=== PATIENT | female | born 1935 | race Caucasian/White ===

== ENCOUNTER 2016-09-22 05:52 | Day surgery (SDC) | payer MEDICARE, OTHER ==
[2016-09-22] MEDS ORDERED: Lactated Ringers 1,000 ML IV SCH (06:30)
[2016-09-22] MEDS ORDERED: Ketamine HCl 50 MG/ML IJ ONE (08:00)
[2016-09-22] MEDS ORDERED: DIPRIVAN 200 MG/20 ML IV ONE (08:00)
[2016-09-22 08:03] VITALS: O2SAT 97
--- NOTE | 2016-09-22 08:41 | OP ---
SURGERY DATE/TIME: 09/22/2016 0657 PREOPERATIVE DIAGNOSIS: History of colon polyps. POSTOPERATIVE DIAGNOSIS: Diverticulosis throughout the colon otherwise normal colon. PROCEDURE: Colonoscopy. SURGEON: Dr. Recinos. ANESTHESIA: Medications given by anesthesia department. HISTORY: The patient is an 81 year-old white female presenting now for repeat colonoscopy. The patient reports it has been over five years since her previous examination at which time she had polyps removed. The patient was felt the need to have re-investigation. She was reappraised of the risks of the procedure including the risk of perforation, phlebitis, untoward reaction to medication, bleeding, and missed lesions. The patient verbalized her understanding and desired to have the procedure performed. DESCRIPTION OF PROCEDURE: The patient was given the medications by the anesthesia department. She had continuous pulse oximetry, ECG monitoring, intermittent blood pressure monitoring, and tidal CO2 monitoring during the examination. She was placed in the left lateral decubitus position. A digital rectal examination was performed and revealed normal anal sphincter tone and no masses. The flexible Olympus pediatric colonoscope was used to intubate the rectum. A view of the colon was developed sequentially to the cecum. Upon insertion and withdrawal, including a retroflex view in the rectum, no mucosal lesions were encountered other than diverticula. The scope was removed from the patient who tolerated the procedure well and was sent back to OP recovery in good condition. The prep was noted to be fair to good.
[2016-09-22 08:49] VITALS: BP 128/57; PULSE 61
== END 2016-09-22 08:54 | disposition home or self-care (01) ==
LOC: SDC 05:52
PROVIDERS: ATTEND Family Medicine
PROC: 0DJD8ZZ Inspection of Lower Intestinal Tract, Via Natural or Artificial Opening Endoscopic (ICD-10-PCS; principal; 2016-09-22)
DX: K57.90 Diverticulosis of intestine, part unspecified, without perforation or abscess without bleeding (principal); Z86.010 Personal history of colon polyps; I10 Essential (primary) hypertension
CPT/HCPCS: 00810; 99100; J2704

== ENCOUNTER 2017-08-08 16:20 | Emergency (ER) | payer MEDICARE, OTHER ==
[2017-08-08 17:45] LABS: BASOPHIL % 0.6 % (0.0-0.4); Basophil (Absolute #) 0.05 (0-0.4); Eosinophil % 1.3 % (0.00-5.0); Granulocyte Absolute (ANC) 5.12 (1.4-6.9); Granulocytes % 66.3 % (36.0-66.0); Hematocrit 40.9 % (35-47); Hemoglobin 13.9 gm/dl (12.0-16.0); Lymphocyte (Absolute #) 1.85 (1.0-4.6); Mean Cell Volume 96.5 fl (78-100); Mean Corpuscular Hemoglobin 32.8 pg (26-32); Mean Platelet Volume 9.5 fl (6-9.5); Monocytes % 7.8 % (0.0-12.0); Platelet Count 244 K/mm3 (150-450); Red Blood Count 4.24 M/mm3 (4.1-5.4); Red Cell Distribution Width 12.1 % (11.5-14.0); White Blood Count 7.7 K/mm3 (4.0-10.5)
--- NOTE | 2017-08-08 18:09 | ERPHSYRPT ---
- History of Present Illness Time Seen by Provider: 08/08/17 17:58 Source: patient Patient Subjective Stated Complaint: STARTED TAKING MAGNESIUM ON THURSDAY AND THEN STARTED HAVING SWELLING TO BOTH LOWER LEGS AND ANKLES. DENIES PAIN. STATES SWELLING GOES DOWN OVERNIGHT BUT RETURNS AFTER BEING ON FEET Triage Nursing Assessment: MODERATE SWELLING AND EDEMA NOTED TO BILATERAL FEET, LOWER LEGS AND ANKLES. MORE NOTED IN LEFT ANKLE. GOOD PEDAL PULSES AND CAP REFILL. Physician History: CC: swelling Hx: 82 y/o patient of Dr Dane Carrasquillo. She has lower extremity swelling in both legs. It is better in mornings. Worse in evenings. She has some pain associated with it. She has arthritis and has had coxcomb injections per Dr Valle. She uses ibuprofen and alleve fairly regularly. No hx of blood clots. No chest pain or dyspnea. No fever or chills. Severity: moderate Allergies/Adverse Reactions: Sulfa (Sulfonamide Antibiotics) [Sulfa(Sulfonamide Antibiotics)] Allergy ( Intermediate, Verified 08/08/17 16:59) Home Medications: Furosemide 20 mg [Lasix 20 mg] 20 mg PO DAILY 09/30/11 [History] Potassium Chloride [Klor-Con 10] 10 meq PO BID 09/30/11 [History] [place]-3 Fatty Acids [Fish Oil] 1,000 mg PO DAILY 05/29/16 [History] Alprazolam [Xanax 0.25 mg] 0.25 mg PO TID PRN 09/15/16 [History] Amlodipine Besylate/Benazepril [Lotrel 10-40 mg Capsule] 1 each PO DAILY [History] Chlorthalidone 25 mg PO DAILY 08/08/17 [History] Magnesium Oxide [Magnesium] 400 mg PO DAILY 08/08/17 [History] Nebivolol HCl [Bystolic] 20 mg PO DAILY 08/08/17 [History] Hx Tetanus, Diphtheria Vaccination/Date Given: Yes Hx Influenza Vaccination/Date Given: Yes Hx Pneumococcal Vaccination/Date Given: Yes - Review of Systems Constitutional: No Fever, No Chills Eyes: No Symptoms Ears, Nose, & Throat: No Symptoms Respiratory: No Cough, No Dyspnea Cardiac: Edema, No Chest Pain Abdominal/Gastrointestinal: No Abdominal Pain, No Nausea, No Vomiting Genitourinary Symptoms: No Dysuria Skin: No Rash Neurological: No Headache All Other Systems: Reviewed and Negative - Past Medical History Pertinent Past Medical History: Yes Neurological History: No Pertinent History ENT History: No Pertinent History Cardiac History: Hypertension Respiratory History: No Pertinent History Endocrine Medical History: No Pertinent History Musculoskeletal History: Arthritis GI Medical History: No Pertinent History History: Other Psycho-Social History: No Pertinent History Female Reproductive Disorders: No Pertinent History - Past Surgical History Past Surgical History: Yes Neuro Surgical History: No Pertinent History Cardiac: No Pertinent History Respiratory: No Pertinent History Gastrointestinal: No Pertinent History Genitourinary: No Pertinent History Musculoskeletal: No Pertinent History Female Surgical History: Tubal Ligation Other Surgical History: back surgery -L-5 herniat. disc - Social History Smoking Status: Never smoker Exposure to second hand smoke: No Alcohol Use: None Drug Use: none Patient Lives Alone: Yes Significant Family History: hypertension - Female History Hx Now: Yes - Nursing Vital Signs Nursing Vital Signs: Initial Vital Signs Temperature 97.4 F 08/08/17 16:47 Pulse Rate 71 08/08/17 16:47 Respiratory Rate 16 08/08/17 16:47 Blood Pressure 165/73 08/08/17 16:47 O2 Sat by Pulse Oximetry 94 L 08/08/17 16:47 Pain Scale Pain Intensity 0 - Physical Exam General Appearance: alert Eye Exam: PERRL/EOMI Ears, Nose, Throat Exam: normal ENT inspection, moist mucous membranes Neck Exam: normal inspection, non-tender, supple Respiratory Exam: normal breath sounds, No respiratory distress, No crackles/ rales Cardiovascular Exam: regular rate/rhythm Gastrointestinal/Abdomen Exam: soft, No tenderness, No distention Back Exam: normal inspection Extremity Exam: other (both legs have moderate pitting edema, no calf tenderness , mild vasculitis venous stasis dermatitis. Good pedal pulses.) Skin Exam: warm, dry SpO2 Interpretation: normal SpO2: 94 Oxygen Delivery: Room Air - Course Nursing assessment & vital signs reviewed: Yes Ordered Tests: Active Orders 24 hr Category Date Time Status IV Insertion STAT Care 08/08/17 17:24 Active CBC W DIFF Stat Lab 08/08/17 17:41 Completed CMP Stat Lab 08/08/17 17:41 Completed NT PRO BNP Stat Lab 08/08/17 17:41 Completed UA W/ MICROSCOPIC Stat Lab 08/08/17 18:18 Completed Lab/Rad Data: Laboratory Result Diagrams 08/08/17 17:41 08/08/17 17:41 Laboratory Results 08/08/17 08/08/17 08/08/17 Range/Units 18:18 17:41 17:41 WBC (4.0-10.5) K/mm3 RBC (4.1-5.4) M/mm3 Hgb (12.0-16.0) gm/dl Hct (35-47) % MCV (78-100) fl MCH (26-32) pg MCHC (32-36) g/dl RDW (11.5-14.0) % Plt Count (150-450) K/mm3 MPV (6-9.5) fl Gran % (36.0-66.0) % Lymphocytes % (24.0-44.0) % Monocytes % (0.0-12.0) % Eosinophils % (0.00-5.0) % Basophils % (0.0-0.4) % Basophils # (0-0.4) Sodium 138 (137-145) mmol/L Potassium 3.9 (3.5-5.1) mmol/L Chloride 97 L (98-107) mEq/L Carbon Dioxide 29 (22-30) mmol/L Anion Gap 15.6 H (5-15) MEQ/L BUN 20 H (7-17) mg/dl Creatinine 0.86 (0.52-1.04) mg/dl Estimated GFR > 60 ML/MIN Glucose 127 H (74-106) mg/dL Calcium 10.3 H (8.4-10.2) mg/dL Total Bilirubin 0.50 (0.2-1.3) mg/d? AST 27 (14-36) U/L ALT 23 (0-35) U/L Alkaline Phosphatase 89 (38-126) U/L NT-Pro-B Natriuret Pep 182 (0-1800) pg/ml Serum Total Protein 7.6 (6.3-8.2) mg/dl Albumin 4.4 (3.5-5.0) g/dl Ur Collection Type CATH Urine Color YELLOW (YELLOW) Urine Appearance CLEAR (CLEAR) Urine pH 6.0 (5-6) Ur Specific [place] 1.020 (1.005-1.025) Urine Protein NEGATIVE (Negative) Urine Ketones NEGATIVE (NEGATIVE) Urine Blood NEGATIVE (0-5) Portillo/ul Urine Nitrite NEGATIVE (NEGATIVE) Urine Bilirubin NEGATIVE (NEGATIVE) Urine Urobilinogen NORMAL (0-1) mg/dL Ur Leukocyte Esterase TRACE (NEGATIVE) Urine Microscopic RBC 0-2 (0-2) /HPF Urine Microscopic WBC 0-2 (0-5) /HPF Ur Epithelial Cells FEW (FEW) /HPF Urine Bacteria FEW (NEGATIVE) /HPF Urine Culture Reflexed NO (NO) Urine Glucose NEGATIVE (NEGATIVE) mg/dL Specimen Received 08/08/17 1820 08/08/17 Range/Units 17:41 WBC 7.7 (4.0-10.5) K/mm3 RBC 4.24 (4.1-5.4) M/mm3 Hgb 13.9 (12.0-16.0) gm/dl Hct 40.9 (35-47) % MCV 96.5 (78-100) fl MCH 32.8 H (26-32) pg MCHC 34.0 (32-36) g/dl RDW 12.1 (11.5-14.0) % Plt Count 244 (150-450) K/mm3 MPV 9.5 (6-9.5) fl Gran % 66.3 H (36.0-66.0) % Lymphocytes % 24.0 (24.0-44.0) % Monocytes % 7.8 (0.0-12.0) % Eosinophils % 1.3 (0.00-5.0) % Basophils % 0.6 (0.0-0.4) % Basophils # 0.05 (0-0.4) Sodium (137-145) mmol/L Potassium (3.5-5.1) mmol/L Chloride (98-107) mEq/L Carbon Dioxide (22-30) mmol/L Anion Gap (5-15) MEQ/L BUN (7-17) mg/dl Creatinine (0.52-1.04) mg/dl Estimated GFR ML/MIN Glucose (74-106) mg/dL Calcium (8.4-10.2) mg/dL Total Bilirubin (0.2-1.3) mg/d? AST (14-36) U/L ALT (0-35) U/L Alkaline Phosphatase (38-126) U/L NT-Pro-B Natriuret Pep (0-1800) pg/ml Serum Total Protein (6.3-8.2) mg/dl Albumin (3.5-5.0) g/dl Ur Collection Type Urine Color (YELLOW) Urine Appearance (CLEAR) Urine pH (5-6) Ur Specific [place] (1.005-1.025) Urine Protein (Negative) Urine Ketones (NEGATIVE) Urine Blood (0-5) Portillo/ul Urine Nitrite (NEGATIVE) Urine Bilirubin (NEGATIVE) Urine Urobilinogen (0-1) mg/dL Ur Leukocyte Esterase (NEGATIVE) Urine Microscopic RBC (0-2) /HPF Urine Microscopic WBC (0-5) /HPF Ur Epithelial Cells (FEW) /HPF Urine Bacteria (NEGATIVE) /HPF Urine Culture Reflexed (NO) Urine Glucose (NEGATIVE) mg/dL Specimen Received - Progress Progress Note: 08/08/17 18:10 This appears to be venous stasis. Discussed limiting NSAIDS, watch salt intake, try support stockings, prop legs in afternoons. 08/08/17 18:41 Labs reassuring. Instr given. Counseled pt/family regarding: lab results, diagnosis, need for follow-up - Departure Time of Disposition: 18:41 Departure Disposition: Home Clinical Impression: Venous stasis of both lower extremities Condition: Stable Critical Care Time: No Referrals: WILBERTO CARRASQUILLO [Primary Care Provider] - Instructions: Dependent Edema (DC), How to Put On and Take Off Compression Stockings Additional Instructions: Support stockings during the day. Elevate legs. Watch your salt intake. Avoid aleve and ibuprofen. May use acetaminophen or tylenol. Follow up with Dr Carrasquillo.
[2017-08-08 18:22] LABS: ALBUMIN 4.4 g/dl (3.5-5.0); ALKALINE PHOSPHATASE 89 U/L (38-126); ANION GAP 15.6 MEQ/L (5-15); BLOOD UREA NITROGEN 20 mg/dl (7-17); CHLORIDE 97 mEq/L (98-107); Calcium 10.3 mg/dL (8.4-10.2); Carbon Dioxide 29 mmol/L (22-30); Creatinine 1 0.86 mg/dl (0.52-1.04); Glucose 127 mg/dL (74-106); Potassium 3.9 mmol/L (3.5-5.1); SGOT/AST 27 U/L (14-36); SGPT/ALT 23 U/L (0-35); SODIUM 138 mmol/L (137-145); Total Protein 7.6 mg/dl (6.3-8.2)
[2017-08-08 18:38] LABS: Appearance CLEAR (CLEAR); Bacteria FEW /HPF (NEGATIVE); Bilirubin NEGATIVE (NEGATIVE); Blood NEGATIVE Ery/ul (0-5); Epithelial Cells FEW /HPF (FEW); Glucose NEGATIVE (NEGATIVE); Ketones NEGATIVE (NEGATIVE); Leukocyte Esterase TRACE (NEGATIVE); Nitrite NEGATIVE (NEGATIVE); Protein,Urine Dip NEGATIVE (Negative); Urobilinogen NORMAL mg/dL (0-1); WBC 0-2 /HPF (0-5)
[2017-08-08 18:40] VITALS: PULSE 61
[2017-08-08 18:43] VITALS: O2SAT 94
[2017-08-08 19:24] VITALS: BP 153/74
== END 2017-08-08 19:24 | disposition home or self-care (01) ==
LOC: ED 16:20
DX: I87.8 Other specified disorders of veins (principal); Z79.899 Other long term (current) drug therapy
CPT/HCPCS: 36000; 36415; 80053; 81000; 83880; 85025; 99283

== ENCOUNTER 2017-11-29 11:30 | Inpatient (IN) | payer MEDICARE, OTHER ==
[2017-11-29] MEDS ORDERED: NORVASC 5 MG ONE (21:33)
[2017-11-29] MEDS ORDERED: Lotensin 10 MG ONE (21:33)
[2017-11-29] MEDS: xanAX 0.5 MG PO PRN (21:36)
[2017-11-29] MEDS: Klor Con 10 MEQ PO SCH (21:36)
[2017-11-29] MEDS: MAG-OX 400 PO SCH (21:36)
[2017-11-30] MEDS: Norco 10/325 MG Tablet PO PRN ×3 (01:18→21:32)
--- NOTE | 2017-11-30 08:10 | PCM.HP ---
History of Present Illness - Chief Complaint Chief Complaint: Deconditioning related to Right total knee Date: 11/30/17 History of Present Illness: is a 82 year old female. s/p right total knee with Dr. Walls at [facility]. Now undergoing rehab. she is doing well with no complaints. - Review of Systems Constitutional: No Fever, No Chills Eyes: No Symptoms Ears, Nose, & Throat: No Symptoms Respiratory: No Cough, No Short Of Breath Cardiac: No Chest Pain, No Edema, No Syncope Abdominal/Gastrointestinal: No Abdominal Pain, No Nausea, No Vomiting, No Diarrhea Genitourinary Symptoms: No Dysuria Musculoskeletal: No Back Pain, No Neck Pain Skin: No Rash Neurological: No Dizziness, No Focal Weakness, No Sensory Changes Psychological: No Symptoms Endocrine: No Symptoms Hematologic/Lymphatic: No Symptoms Immunological/Allergic: No Symptoms Medications & Allergies Home Medications: Home Medication List Furosemide 20 mg [Lasix 20 mg] 20 mg PO DAILY 09/30/11 [History Confirmed 06/18] Potassium Chloride [Klor-Con 10] 10 meq PO BID 09/30/11 [History Confirmed 11/29] Amlodipine Besylate/Benazepril [Lotrel 10-40 mg Capsule] 1 each PO DAILY [History Confirmed 11/29/17] Chlorthalidone 25 mg PO DAILY 08/08/17 [History Confirmed 11/29/17] Magnesium Oxide [Magnesium] 400 mg PO BID 08/08/17 [History Confirmed 11/29/17] Nebivolol HCl [Bystolic] 20 mg PO DAILY 08/08/17 [History Confirmed 11/29/17] Alprazolam [Xanax] 0.5 mg PO TIDPRN 11/29/17 [History Confirmed 11/29/17] Aspirin [Aspirin EC] 325 mg PO DAILY 11/29/17 [History Confirmed 11/29/17] Hydrocodone Bit/Acetaminophen [Hydrocodon-Acetaminophn 10-325] 1 tab PO Q4HPRN PRN 11/29/17 [History Confirmed 11/29/17] Allergies/Adverse Reactions: Allergies Allergy/AdvReac Type Severity Reaction Status Date / Time Sulfa (Sulfonamide Allergy Intermediate Verified 11/29/17 16:10 Antibiotics) [Sulfa(Sulfonamide Antibiotics)] - Past Medical History Past Medical History: Yes Neurological History: No Pertinent History ENT History: No Pertinent History Cardiac History: Hypertension Respiratory History: No Pertinent History Endocrine Medical History: No Pertinent History Musculoskelatal History: Arthritis GI Medical History: No Pertinent History History: Other Pyscho-Social History: No Pertinent History Reproductive Disorders: No Pertinent History Comment: colonoscopy, UTI's - Female History Are you now?: No - Past Surgical History Past Surgical History: Yes Neuro Surgical History: No Pertinent History Cardiac History: No Pertinent History Respiratory Surgery: No Pertinent History GI Surgical History: No Pertinent History Genitourinary Surgical Hx: No Pertinent History Musculskeletal Surgical Hx: No Pertinent History Female Surgical History: Tubal Ligation Other Surgical History: back surgery -L-5 herniat. disc. Arthroscopy of the R knee, Right total knee done 11/26/17 - Social History Smoking Status: Never smoker Exposure to second hand smoke: No Alcohol: None Drug Use: none Significant Family History: hypertension - Physical Exam Vital Signs: Vital Signs - 24 hr Temp Pulse Resp BP Pulse Ox 11/30/17 06:53 98.6 F 64 16 112/52 96 11/29/17 20:00 98.4 F 65 16 142/63 95 11/29/17 16:31 99.4 F 68 16 136/63 96 11/29/17 16:29 99.4 F 68 16 136/63 96 11/29/17 16:15 99.4 F 68 16 136/63 96 General Appearance: no apparent distress, alert, obese Neurologic Exam: alert, oriented x 3, cooperative, normal mood/affect, sensation nml Eye Exam: PERRL/EOMI, eyes nml inspection Ears, Nose, Throat Exam: normal ENT inspection, TMs normal, pharynx normal, moist mucous membranes Neck Exam: normal inspection, non-tender, supple, full range of motion Respiratory Exam: normal breath sounds, lungs clear, No respiratory distress Cardiovascular Exam: regular rate/rhythm, normal heart sounds, normal peripheral pulses Gastrointestinal/Abdomen Exam: soft, normal bowel sounds, No tenderness, No mass Back Exam: normal inspection, No CVA tenderness, No vertebral tenderness Extremity Exam: normal inspection, other (right knee antimicrobial dressing in place minimal swelling no bruising or redness no calf tenderness) Skin Exam: normal color, warm, dry, ecchymosis, other (diffuse bilateral arms), No rash Lymphatic Exam: No adenopathy Assessment/Plan (1) Osteoarthritis Current Visit: Yes Status: Acute Assessment & Plan: continue follow post op orders from ortho Dr. Walls start PT has f/u with Dr. Walls as well for staple removal Code(s): M19.90 - UNSPECIFIED OSTEOARTHRITIS, UNSPECIFIED SITE (2) Total knee replacement status Current Visit: Yes Status: Acute Qualifiers: Laterality: right Qualified Code(s): Z96.651 - Presence of right artificial knee joint Code(s): Z96.659 - PRESENCE OF UNSPECIFIED ARTIFICIAL KNEE JOINT (3) Essential hypertension Current Visit: Yes Status: Chronic Code(s): I10 - ESSENTIAL (PRIMARY) HYPERTENSION (4) Obesity Current Visit: Yes Status: Chronic Qualifiers: Body mass index: BMI 32.0-32.9 Code(s): E66.9 - OBESITY, UNSPECIFIED
[2017-11-30] MEDS: Bystolic 5 MG PO SCH (09:48)
[2017-11-30] MEDS: Ecotrin 325 MG PO SCH (09:48)
[2017-11-30] MEDS: Klor Con 10 MEQ PO SCH ×2 (09:49→21:22)
[2017-11-30] MEDS: hydroDIURIL 25 MG PO SCH (09:49)
[2017-11-30] MEDS: MAG-OX 400 PO SCH ×2 (09:49→21:22)
[2017-11-30] MEDS: LASIX 20 MG PO SCH (09:49)
[2017-11-30] MEDS ORDERED: NON-FORMULARY ITEM (Nebivolol Hcl [Bystolic] 20 MG) PO SCH (10:00)
[2017-11-30] MEDS ORDERED: BENAZEPRIL PO SCH (10:00)
[2017-11-30] MEDS ORDERED: Lotensin 10 MG PO SCH (10:00)
[2017-11-30] MEDS ORDERED: AMLODIPINE BESYLATE PO SCH (10:00)
[2017-11-30] MEDS ORDERED: NORVASC 5 MG PO SCH (10:00)
[2017-11-30] MEDS ORDERED: Aplisol ID SCH (10:00)
[2017-11-30] MEDS ORDERED: NON-FORMULARY ITEM (Chlorthalidone [Chlorthalidone] 25 MG) PO SCH (10:00)
[2017-11-30] MEDS: Lotensin 10 MG PO SCH (21:22)
[2017-11-30] MEDS: NORVASC 5 MG PO SCH (21:23)
[2017-11-30] MEDS: xanAX 0.5 MG PO PRN (21:32)
[2017-12-01] MEDS: Norco 10/325 MG Tablet PO PRN ×2 (08:36→21:41)
[2017-12-01] MEDS: Ecotrin 325 MG PO SCH (10:10)
[2017-12-01] MEDS: Klor Con 10 MEQ PO SCH ×2 (10:10→21:39)
[2017-12-01] MEDS: LASIX 20 MG PO SCH (10:10)
[2017-12-01] MEDS: Bystolic 5 MG PO SCH (10:10)
[2017-12-01] MEDS: hydroDIURIL 25 MG PO SCH (10:10)
[2017-12-01] MEDS: MAG-OX 400 PO SCH ×2 (10:10→21:40)
[2017-12-01] MEDS: Lotensin 10 MG PO SCH (21:39)
[2017-12-01] MEDS: NORVASC 5 MG PO SCH (21:40)
[2017-12-01] MEDS: xanAX 0.5 MG PO PRN (21:41)
[2017-12-02] MEDS: Bystolic 5 MG PO SCH (09:55)
[2017-12-02] MEDS: Norco 10/325 MG Tablet PO PRN ×2 (09:56→17:03)
[2017-12-02] MEDS: Ecotrin 325 MG PO SCH (09:56)
[2017-12-02] MEDS: LASIX 20 MG PO SCH (09:56)
[2017-12-02] MEDS: Klor Con 10 MEQ PO SCH ×2 (09:56→22:11)
[2017-12-02] MEDS: hydroDIURIL 25 MG PO SCH (09:57)
[2017-12-02] MEDS: MAG-OX 400 PO SCH ×2 (09:57→22:11)
[2017-12-02] MEDS: Lotensin 10 MG PO SCH (22:11)
[2017-12-02] MEDS: NORVASC 5 MG PO SCH (22:11)
[2017-12-02] MEDS: xanAX 0.5 MG PO PRN (22:16)
[2017-12-03] MEDS: Bystolic 5 MG PO SCH (08:50)
[2017-12-03] MEDS: Ecotrin 325 MG PO SCH (08:51)
[2017-12-03] MEDS: Klor Con 10 MEQ PO SCH ×2 (08:51→21:28)
[2017-12-03] MEDS: hydroDIURIL 25 MG PO SCH (08:51)
[2017-12-03] MEDS: MAG-OX 400 PO SCH ×2 (08:51→21:28)
[2017-12-03] MEDS: LASIX 20 MG PO SCH (08:51)
[2017-12-03] MEDS: TYLENOL 325 MG PO PRN (10:27)
[2017-12-03] MEDS: Colace 100 MG PO SCH (10:27)
[2017-12-03] MEDS: MOTRIN 400 MG PO PRN ×3 (12:05→21:33)
[2017-12-03] MEDS: Lotensin 10 MG PO SCH (21:28)
[2017-12-03] MEDS: NORVASC 5 MG PO SCH (21:29)
[2017-12-03] MEDS: xanAX 0.5 MG PO PRN (21:33)
[2017-12-04] MEDS: TYLENOL 325 MG PO PRN (00:12)
[2017-12-04] MEDS: Norco 10/325 MG Tablet PO PRN ×2 (01:13→08:44)
[2017-12-04] MEDS: hydroDIURIL 25 MG PO SCH (08:48)
[2017-12-04] MEDS: Colace 100 MG PO SCH (08:48)
[2017-12-04] MEDS: Ecotrin 325 MG PO SCH (08:48)
[2017-12-04] MEDS: Bystolic 5 MG PO SCH (08:50)
[2017-12-04] MEDS: LASIX 20 MG PO SCH (08:51)
[2017-12-04] MEDS: MAG-OX 400 PO SCH ×2 (08:51→21:24)
[2017-12-04] MEDS: Klor Con 10 MEQ PO SCH ×2 (08:52→21:23)
[2017-12-04] MEDS: ULTRAM 50 MG PO PRN ×2 (15:08→21:25)
[2017-12-04] MEDS: Lotensin 10 MG PO SCH (21:24)
[2017-12-04] MEDS: NORVASC 5 MG PO SCH (21:24)
[2017-12-04] MEDS: xanAX 0.5 MG PO PRN (21:25)
[2017-12-05] MEDS: ULTRAM 50 MG PO PRN ×2 (08:34→22:43)
[2017-12-05] MEDS: Colace 100 MG PO SCH (08:35)
[2017-12-05] MEDS: MAG-OX 400 PO SCH ×2 (08:35→22:43)
[2017-12-05] MEDS: Ecotrin 325 MG PO SCH (08:35)
[2017-12-05] MEDS: Bystolic 5 MG PO SCH (08:36)
[2017-12-05] MEDS: LASIX 20 MG PO SCH (08:37)
[2017-12-05] MEDS: hydroDIURIL 25 MG PO SCH (08:38)
[2017-12-05] MEDS: Klor Con 10 MEQ PO SCH ×2 (08:39→22:43)
[2017-12-05] MEDS: Lotensin 10 MG PO SCH (22:43)
[2017-12-05] MEDS: NORVASC 5 MG PO SCH (22:43)
[2017-12-05] MEDS: xanAX 0.5 MG PO PRN (22:43)
[2017-12-06] MEDS: Colace 100 MG PO SCH (09:44)
[2017-12-06] MEDS: LASIX 20 MG PO SCH (09:44)
[2017-12-06] MEDS: Bystolic 5 MG PO SCH (09:45)
[2017-12-06] MEDS: Ecotrin 325 MG PO SCH (09:45)
[2017-12-06] MEDS: hydroDIURIL 25 MG PO SCH (09:45)
[2017-12-06] MEDS: Klor Con 10 MEQ PO SCH ×2 (09:45→22:58)
[2017-12-06] MEDS: MAG-OX 400 PO SCH ×2 (09:45→22:59)
[2017-12-06] MEDS: Lotensin 10 MG PO SCH (22:58)
[2017-12-06] MEDS: NORVASC 5 MG PO SCH (23:00)
[2017-12-06] MEDS: xanAX 0.5 MG PO PRN (23:00)
[2017-12-06] MEDS: ULTRAM 50 MG PO PRN (23:00)
[2017-12-07] MEDS: Colace 100 MG PO SCH (09:16)
[2017-12-07] MEDS: Bystolic 5 MG PO SCH (09:16)
[2017-12-07] MEDS: LASIX 20 MG PO SCH (09:17)
[2017-12-07] MEDS: MAG-OX 400 PO SCH ×2 (09:17→21:39)
[2017-12-07] MEDS: Klor Con 10 MEQ PO SCH ×2 (09:17→21:37)
[2017-12-07] MEDS: hydroDIURIL 25 MG PO SCH (09:17)
[2017-12-07] MEDS: Ecotrin 325 MG PO SCH (09:17)
[2017-12-07] MEDS: ULTRAM 50 MG PO PRN ×2 (09:58→21:40)
[2017-12-07] MEDS: MOTRIN 400 MG PO PRN (13:07)
[2017-12-07] MEDS: Lotensin 10 MG PO SCH (21:39)
[2017-12-07] MEDS: NORVASC 5 MG PO SCH (21:39)
[2017-12-07] MEDS: xanAX 0.5 MG PO PRN (21:40)
[2017-12-08] MEDS: MOTRIN 400 MG PO PRN (01:02)
[2017-12-08] MEDS: Klor Con 10 MEQ PO SCH ×2 (09:22→22:14)
[2017-12-08] MEDS: Colace 100 MG PO SCH ×2 (09:22→09:23)
[2017-12-08] MEDS: Bystolic 5 MG PO SCH (09:22)
[2017-12-08] MEDS: Ecotrin 325 MG PO SCH (09:22)
[2017-12-08] MEDS: MAG-OX 400 PO SCH ×2 (09:22→22:15)
[2017-12-08] MEDS: ULTRAM 50 MG PO PRN ×2 (09:22→22:19)
[2017-12-08] MEDS: LASIX 20 MG PO SCH (09:22)
[2017-12-08] MEDS: hydroDIURIL 25 MG PO SCH (09:22)
[2017-12-08] MEDS: TYLENOL 325 MG PO PRN (11:50)
[2017-12-08] MEDS: Lotensin 10 MG PO SCH (22:14)
[2017-12-08] MEDS: NORVASC 5 MG PO SCH (22:15)
[2017-12-08] MEDS: xanAX 0.5 MG PO PRN (22:19)
[2017-12-09] MEDS: MOTRIN 400 MG PO PRN ×2 (06:13→21:20)
[2017-12-09] MEDS: Klor Con 10 MEQ PO SCH ×2 (07:35→21:20)
[2017-12-09] MEDS: Ecotrin 325 MG PO SCH (07:35)
[2017-12-09] MEDS: MAG-OX 400 PO SCH ×2 (07:35→21:20)
[2017-12-09] MEDS: Bystolic 5 MG PO SCH (07:36)
[2017-12-09] MEDS: hydroDIURIL 25 MG PO SCH (11:24)
[2017-12-09] MEDS: LASIX 20 MG PO SCH (11:24)
[2017-12-09] MEDS: TYLENOL 325 MG PO PRN (20:18)
[2017-12-09] MEDS: Lotensin 10 MG PO SCH (21:19)
[2017-12-09] MEDS: NORVASC 5 MG PO SCH (21:20)
[2017-12-09] MEDS: xanAX 0.5 MG PO PRN (21:31)
[2017-12-10] MEDS: MOTRIN 400 MG PO PRN ×3 (01:21→22:17)
[2017-12-10] MEDS: LASIX 20 MG PO SCH (09:32)
[2017-12-10] MEDS: Bystolic 5 MG PO SCH (09:32)
[2017-12-10] MEDS: Ecotrin 325 MG PO SCH (09:32)
[2017-12-10] MEDS: hydroDIURIL 25 MG PO SCH (09:32)
[2017-12-10] MEDS: MAG-OX 400 PO SCH ×2 (09:33→22:17)
[2017-12-10] MEDS: Klor Con 10 MEQ PO SCH ×2 (09:33→22:17)
[2017-12-10] MEDS: Colace 100 MG PO SCH (09:33)
[2017-12-10] MEDS: NORVASC 5 MG PO SCH (22:17)
[2017-12-10] MEDS: Lotensin 10 MG PO SCH (22:17)
[2017-12-10] MEDS: xanAX 0.5 MG PO PRN (22:18)
[2017-12-11] MEDS: Ecotrin 325 MG PO SCH (09:48)
[2017-12-11] MEDS: hydroDIURIL 25 MG PO SCH (09:48)
[2017-12-11] MEDS: Klor Con 10 MEQ PO SCH ×2 (09:48→21:56)
[2017-12-11] MEDS: LASIX 20 MG PO SCH (09:48)
[2017-12-11] MEDS: MAG-OX 400 PO SCH ×2 (09:49→21:52)
[2017-12-11] MEDS: Colace 100 MG PO SCH (09:49)
[2017-12-11] MEDS: Bystolic 5 MG PO SCH (09:51)
[2017-12-11] MEDS ORDERED: Aplisol ID SCH (10:00)
[2017-12-11] MEDS: Protonix 40MG Tablet PO SCH (14:44)
[2017-12-11] MEDS: Tums EX 750 MG PO PRN (14:44)
[2017-12-11] MEDS: Lotensin 10 MG PO SCH (21:52)
[2017-12-11] MEDS: NORVASC 5 MG PO SCH (21:52)
[2017-12-11] MEDS: MOTRIN 400 MG PO PRN (21:53)
[2017-12-11] MEDS: xanAX 0.5 MG PO PRN (21:53)
[2017-12-12] MEDS: Protonix 40MG Tablet PO SCH (10:16)
[2017-12-12] MEDS: Ecotrin 325 MG PO SCH (10:16)
[2017-12-12] MEDS: MOTRIN 400 MG PO PRN ×2 (10:16→21:52)
[2017-12-12] MEDS: Colace 100 MG PO SCH (10:17)
[2017-12-12] MEDS: Bystolic 5 MG PO SCH (10:17)
[2017-12-12] MEDS: LASIX 20 MG PO SCH (10:17)
[2017-12-12] MEDS: MAG-OX 400 PO SCH ×2 (10:17→21:54)
[2017-12-12] MEDS: hydroDIURIL 25 MG PO SCH (10:17)
[2017-12-12] MEDS: Klor Con 10 MEQ PO SCH ×2 (10:17→21:54)
[2017-12-12] MEDS: NORVASC 5 MG PO SCH (21:53)
[2017-12-12] MEDS: Lotensin 10 MG PO SCH (21:53)
[2017-12-12] MEDS: xanAX 0.5 MG PO PRN (21:53)
[2017-12-12] MEDS: Tums EX 750 MG PO PRN (21:54)
[2017-12-13] MEDS: MOTRIN 400 MG PO PRN ×2 (03:40→22:21)
[2017-12-13 06:10] LABS: ANION GAP 11.3 MEQ/L (5-15); BLOOD UREA NITROGEN 15 mg/dL (7-17); CHLORIDE 94 mmol/L (98-107); Calcium 9.4 mg/dL (8.4-10.2); Carbon Dioxide 28 mmol/L (22-30); Creatinine 1 0.75 mg/dL (0.52-1.04); Glucose 118 mg/dL (74-106); Potassium 3.2 mmol/L (3.5-5.1); SODIUM 129 mmol/L (137-145)
[2017-12-13] MEDS: Ecotrin 325 MG PO SCH (09:19)
[2017-12-13] MEDS: Bystolic 5 MG PO SCH (09:19)
[2017-12-13] MEDS: Protonix 40MG Tablet PO SCH (09:19)
[2017-12-13] MEDS: MAG-OX 400 PO SCH ×2 (09:20→22:13)
[2017-12-13] MEDS: LASIX 20 MG PO SCH (09:20)
[2017-12-13] MEDS: Klor Con 10 MEQ PO SCH ×3 (09:20→22:13)
[2017-12-13] MEDS: hydroDIURIL 25 MG PO SCH (09:20)
[2017-12-13] MEDS: Colace 100 MG PO SCH (09:20)
[2017-12-13] MEDS ORDERED: Colace 100 MG PO PRN (11:20)
[2017-12-13] MEDS: TYLENOL 325 MG PO PRN (19:49)
[2017-12-13] MEDS: Lotensin 10 MG PO SCH (22:12)
[2017-12-13] MEDS: NORVASC 5 MG PO SCH (22:13)
[2017-12-13] MEDS: xanAX 0.5 MG PO PRN (22:13)
[2017-12-14] MEDS: Bystolic 5 MG PO SCH (10:07)
[2017-12-14] MEDS: Klor Con 10 MEQ PO SCH ×3 (10:07→21:29)
[2017-12-14] MEDS: LASIX 20 MG PO SCH (10:07)
[2017-12-14] MEDS: Ecotrin 325 MG PO SCH (10:07)
[2017-12-14] MEDS: Protonix 40MG Tablet PO SCH (10:07)
[2017-12-14] MEDS: hydroDIURIL 25 MG PO SCH (10:07)
[2017-12-14] MEDS: MAG-OX 400 PO SCH ×2 (10:07→21:35)
[2017-12-14] MEDS: Lotensin 10 MG PO SCH (21:29)
[2017-12-14] MEDS: MOTRIN 400 MG PO PRN (21:35)
[2017-12-14] MEDS: xanAX 0.5 MG PO PRN (21:35)
[2017-12-14] MEDS: NORVASC 5 MG PO SCH (21:35)
[2017-12-15] MEDS: Bystolic 5 MG PO SCH (10:12)
[2017-12-15] MEDS: hydroDIURIL 25 MG PO SCH (10:13)
[2017-12-15] MEDS: Protonix 40MG Tablet PO SCH (10:13)
[2017-12-15] MEDS: LASIX 20 MG PO SCH (10:13)
[2017-12-15] MEDS: Klor Con 10 MEQ PO SCH ×3 (10:13→21:24)
[2017-12-15] MEDS: MAG-OX 400 PO SCH ×2 (10:13→21:25)
[2017-12-15] MEDS: Ecotrin 325 MG PO SCH (10:13)
[2017-12-15] MEDS: MOTRIN 400 MG PO PRN ×2 (14:57→21:26)
[2017-12-15] MEDS: Lotensin 10 MG PO SCH (21:24)
[2017-12-15] MEDS: NORVASC 5 MG PO SCH (21:25)
[2017-12-15] MEDS: xanAX 0.5 MG PO PRN (21:26)
--- NOTE | 2017-12-16 08:16 | PCM.DCORD ---
- Discharge Discharge Date: 12/16/17 Disposition: Home, Self-Care Condition: Stable Prescriptions: Continue Furosemide 20 mg [Lasix 20 mg] 20 mg PO DAILY Potassium Chloride [Klor-Con 10] 10 meq PO BID Amlodipine Besylate/Benazepril [Lotrel 10-40 mg Capsule] 1 each PO DAILY Nebivolol HCl [Bystolic] 20 mg PO DAILY Magnesium Oxide [Magnesium] 400 mg PO BID Chlorthalidone 25 mg PO DAILY Hydrocodone Bit/Acetaminophen [Hydrocodon-Acetaminophn 10-325] 1 tab PO Q4HPRN PRN PRN Reason: Moderate Pain Aspirin [Aspirin EC] 325 mg PO DAILY Alprazolam [Xanax] 0.5 mg PO TIDPRN Follow up with: KRISSY KEMP MD [COURTESY STAFF] - 01/07/18 1:00 pm Forms: Patient Portal Information
[2017-12-16] MEDS: hydroDIURIL 25 MG PO SCH (09:16)
[2017-12-16] MEDS: LASIX 20 MG PO SCH (09:16)
[2017-12-16] MEDS: Protonix 40MG Tablet PO SCH (09:16)
[2017-12-16] MEDS: MAG-OX 400 PO SCH (09:16)
[2017-12-16] MEDS: Ecotrin 325 MG PO SCH (09:16)
[2017-12-16] MEDS: Bystolic 5 MG PO SCH (09:16)
[2017-12-16] MEDS: Klor Con 10 MEQ PO SCH (09:16)
[2017-12-16 13:11] VITALS: BP 108/56; PULSE 67; O2SAT 98
--- NOTE | 2017-12-17 12:20 | PCM.DS ---
Discharge Summary Date of Admission: 11/29/17 15:36 Date of Discharge: 12/16/17 Admitting Physician: WILBERTO CARRASQUILLO Primary Care Provider: WILBERTO CARRASQUILLO Allergies Allergies Sulfa (Sulfonamide Antibiotics) [Sulfa(Sulfonamide Antibiotics)] Allergy ( Intermediate, Verified 11/29/17 16:10) pt thinks she has had sulfa since her a reaction (unsure of what kind of reaction) years ago and did fine. Hospital Summary - Hospital Course Hospital Course: she presented after total knee replacement for therapy. She has done very well she had some indigestion as she was not on her nexium she normally takes at home but this improved after starting the protonix. she did very well with good progression with therapy. She did have a fall in the bathroom a few days prior to discharge hitting her head with no other injury and no neuro deficits and she has recovered and this did not set her back. she will keep outpatient f/u with ortho - Vitals & Intake/Output Vital Signs: Vital Signs Temperature 98.0 F 12/16/17 12:30 Pulse Rate 67 12/16/17 12:30 Respiratory Rate 18 12/16/17 12:30 Blood Pressure 108/56 12/16/17 12:30 O2 Sat by Pulse Oximetry 98 12/16/17 12:30 Intake & Output: Intake & Output 12/15/17 12/16/17 12/17/17 12/18/17 11:59 11:59 11:59 11:59 Intake Total 600 780 Balance 600 780 - Lab Result Diagrams: 12/13/17 05:35 - Procedures and Test Procedures and Tests throughout Hospitalization: Therapy Orders & Screens 11/29/17 13:32 PT Eval & Treat ( Order) ROUTINE Reason for Eval:: Deconditioning related to Right total knee Diagnosis: Deconditioning related to Right total knee Discharge Exam General Appearance: no apparent distress, alert Neurologic Exam: alert, oriented x 3, cooperative, normal mood/affect, nml cerebellar function, sensation nml, No motor deficits Skin Exam: normal color, warm, dry Eye Exam: PERRL, EOMI, eyes nml inspection Ears, Nose, Throat Exam: normal ENT inspection, pharynx normal, moist mucous membranes Neck Exam: normal inspection, non-tender, supple, full range of motion Respiratory Exam: normal breath sounds, lungs clear, No respiratory distress Cardiovascular Exam: regular rate/rhythm, normal heart sounds Gastrointestinal/Abdomen Exam: soft, No tenderness, No mass Extremity Exam: normal inspection, normal range of motion Back Exam: normal inspection, normal range of motion, No CVA tenderness, No vertebral tenderness Pelvic Exam: deferred Rectal Exam: deferred Final Diagnosis/Problem List - Final Discharge Diagnosis/Problem (1) Osteoarthritis Status: Acute (2) Total knee replacement status Status: Acute (3) Essential hypertension Status: Chronic (4) Obesity Status: Chronic - Discharge Discharge Date: 12/16/17 Disposition: Home, Self-Care Condition: Stable Prescriptions: Continue Furosemide 20 mg [Lasix 20 mg] 20 mg PO DAILY Potassium Chloride [Klor-Con 10] 10 meq PO BID Amlodipine Besylate/Benazepril [Lotrel 10-40 mg Capsule] 1 each PO DAILY Nebivolol HCl [Bystolic] 20 mg PO DAILY Magnesium Oxide [Magnesium] 400 mg PO BID Chlorthalidone 25 mg PO DAILY Hydrocodone Bit/Acetaminophen [Hydrocodon-Acetaminophn 10-325] 1 tab PO Q4HPRN PRN PRN Reason: Moderate Pain Aspirin [Aspirin EC] 325 mg PO DAILY Alprazolam [Xanax] 0.5 mg PO TIDPRN Instructions: Osteoarthritis, Total Knee Replacement (DC) Additional Instructions: RETURN TO OUTPATIENT PHYSICAL THERAPY DIRECTED BY DARIN MENDEZ P.T. Follow up with: WILBERTO CARRASQUILLO [Primary Care Provider] - 12/22/17 10:45 am KRISSY KEMP MD [COURTESY STAFF] - 01/07/18 1:00 pm Forms: Discharge Instructions, Patient Portal Information
== END 2017-12-16 12:58 | disposition home or self-care (01) | DRG 554 ==
LOC: UNDOADMIN 11:32 → MED SURG 11:32
PROVIDERS: ADMIT Family Medicine; ATTEND Family Medicine
DX: M17.11 Unilateral primary osteoarthritis, right knee (principal); Z96.651 Presence of right artificial knee joint; I10 Essential (primary) hypertension; E66.9 Obesity, unspecified; Z68.32 Body mass index [BMI] 32.0-32.9, adult; W18.30XA Fall on same level, unspecified, initial encounter; Y93.9 Activity, unspecified; Y92.231 Patient bathroom in hospital as the place of occurrence of the external cause; Z79.82 Long term (current) use of aspirin; Z79.899 Other long term (current) drug therapy
CPT/HCPCS: 36415; 80048; 97110-GP; A9270-GY

== ENCOUNTER 2018-03-13 12:49 | Inpatient (IN) | payer MEDICARE, OTHER ==
[2018-03-13] MEDS ORDERED: Aplisol ID ONE (14:00)
[2018-03-13] MEDS ORDERED: Norco 10/325 MG Tablet PO PRN (14:46)
[2018-03-13] MEDS: xanAX 0.5 MG PO SCH (21:27)
[2018-03-13] MEDS: Klor Con 10 MEQ PO SCH (21:27)
[2018-03-13] MEDS: MAG-OX 400 PO SCH (21:27)
[2018-03-14] MEDS: TYLENOL 325 MG PO PRN ×4 (06:25→21:39)
[2018-03-14] MEDS: Klor Con 10 MEQ PO SCH ×2 (09:45→21:35)
[2018-03-14] MEDS: Protonix 40MG Tablet PO SCH (09:45)
[2018-03-14] MEDS: hydroDIURIL 25 MG PO SCH (09:45)
[2018-03-14] MEDS: ECOTRIN 81 MG PO SCH (09:45)
[2018-03-14] MEDS: MAG-OX 400 PO SCH ×2 (09:45→21:35)
[2018-03-14] MEDS: LASIX 20 MG PO SCH (09:45)
[2018-03-14] MEDS: Bystolic 5 MG PO SCH (09:46)
[2018-03-14] MEDS: NORVASC 5 MG PO SCH (09:46)
[2018-03-14] MEDS ORDERED: NON-FORMULARY ITEM (Aspirin [Aspirin] 81 MG) PO SCH (10:00)
[2018-03-14] MEDS ORDERED: Lotensin 10 MG PO SCH (10:00)
[2018-03-14] MEDS ORDERED: AMLODIPINE BESYLATE PO SCH (10:00)
[2018-03-14] MEDS ORDERED: NON-FORMULARY ITEM (Chlorthalidone [Chlorthalidone] 25 MG) PO SCH (10:00)
[2018-03-14] MEDS ORDERED: BENAZEPRIL PO SCH (10:00)
[2018-03-14] MEDS ORDERED: NON-FORMULARY ITEM (Nebivolol Hcl [Bystolic] 20 MG) PO SCH (10:00)
--- NOTE | 2018-03-14 13:15 | PCM.HP ---
History of Present Illness - Chief Complaint Chief Complaint: deconditioning R/T R knee surgery. Date: 03/14/18 History of Present Illness: is a 83 year old female. 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 This resulted in a revision preformed by Dr. Walls at [facility]. She lives alone and is to wear a knee immobilizer for 2 weeks followed by a different knee immobilizer for 6 additional weeks per the patient. She is able to bear weight on the foot per patient. She is to continue to work with therapy to be able to strengthen adequately to be taken care of with the assistance of home health. Otherwise she is doing well without complaints. - Review of Systems Constitutional: No Fever, No Chills Eyes: No Symptoms Ears, Nose, & Throat: No Symptoms Respiratory: No Cough, No Short Of Breath Cardiac: No Chest Pain, No Edema, No Syncope Abdominal/Gastrointestinal: No Abdominal Pain, No Nausea, No Vomiting, No Diarrhea Genitourinary Symptoms: No Dysuria Musculoskeletal: No Back Pain, No Neck Pain Skin: No Rash Neurological: No Dizziness, No Focal Weakness, No Sensory Changes Psychological: No Symptoms Endocrine: No Symptoms Hematologic/Lymphatic: No Symptoms Immunological/Allergic: No Symptoms Medications & Allergies Home Medications: Home Medication List Furosemide 20 mg [Lasix 20 mg] 20 mg PO DAILY 09/30/11 [History Confirmed 03/13/18] Potassium Chloride [Klor-Con 10] 10 meq PO BID 09/30/11 [History Confirmed 03/13] Amlodipine Besylate/Benazepril [Lotrel 10-40 mg Capsule] 1 each PO DAILY [History Confirmed 03/13/18] Chlorthalidone 25 mg PO DAILY 08/08/17 [History Confirmed 03/13/18] Magnesium Oxide [Magnesium] 400 mg PO BID 08/08/17 [History Confirmed 03/13/18] Nebivolol HCl [Bystolic] 20 mg PO DAILY 08/08/17 [History Confirmed 03/13/18] Alprazolam [Xanax] 0.5 mg PO HS 11/29/17 [History Confirmed 03/13/18] Hydrocodone Bit/Acetaminophen [Hydrocodon-Acetaminophn 10-325] 1 tab PO Q4HPRN PRN 11/29/17 [History Confirmed 03/13/18] Acetaminophen 325 mg PO Q6H PRN 03/13/18 [History Confirmed 03/13/18] Aspirin 81 mg PO DAILY 03/13/18 [History Confirmed 03/13/18] Allergies/Adverse Reactions: Allergies Allergy/AdvReac Type Severity Reaction Status Date / Time Sulfa (Sulfonamide Allergy Intermediate Verified 11/29/17 16:10 Antibiotics) [Sulfa(Sulfonamide Antibiotics)] - Past Medical History Past Medical History: Yes Neurological History: No Pertinent History ENT History: No Pertinent History Cardiac History: Hypertension Respiratory History: No Pertinent History Endocrine Medical History: No Pertinent History Musculoskelatal History: Arthritis, Degenerative Disk Disease, Osteoarthritis GI Medical History: No Pertinent History History: Other Pyscho-Social History: No Pertinent History Reproductive Disorders: No Pertinent History Comment: CATARACTS. BACK SURGERY - Female History Are you now?: No - Past Surgical History Past Surgical History: Yes Neuro Surgical History: No Pertinent History Cardiac History: No Pertinent History Respiratory Surgery: No Pertinent History GI Surgical History: No Pertinent History Genitourinary Surgical Hx: No Pertinent History Musculskeletal Surgical Hx: No Pertinent History Female Surgical History: Tubal Ligation Other Surgical History: back surgery -L-5 herniat. disc. Arthroscopy of the R knee, Right total knee done 11/26/17 R knee patella. 03/2018 - Social History Smoking Status: Never smoker Exposure to second hand smoke: No Alcohol: None Drug Use: none Significant Family History: hypertension - Physical Exam Vital Signs: Vital Signs - 24 hr Temp Pulse Resp BP Pulse Ox 03/14/18 07:26 98.4 F 69 20 127/61 97 03/13/18 19:05 97.6 F 68 18 126/59 97 03/13/18 13:26 97.5 F 69 20 144/70 97 General Appearance: no apparent distress, alert, obese Neurologic Exam: alert, oriented x 3, cooperative, normal mood/affect, nml cerebellar function, nml station & gait, sensation nml, No motor deficits Eye Exam: PERRL/EOMI, eyes nml inspection Ears, Nose, Throat Exam: normal ENT inspection, TMs normal, pharynx normal, moist mucous membranes Neck Exam: normal inspection, non-tender, supple, full range of motion Respiratory Exam: normal breath sounds, lungs clear, No respiratory distress Cardiovascular Exam: regular rate/rhythm, normal heart sounds, normal peripheral pulses Gastrointestinal/Abdomen Exam: soft, normal bowel sounds, No tenderness, No mass Back Exam: normal inspection, normal range of motion, No CVA tenderness, No vertebral tenderness Extremity Exam: normal inspection, other (right knee in immobilzer without swelling or warmth or calf tenderness dressing covering the incision on the medial knee) Skin Exam: normal color, warm, dry, No rash Lymphatic Exam: No adenopathy Assessment/Plan (1) History of revision of total knee arthroplasty Current Visit: Yes Status: Acute Assessment & Plan: work with pt to improve strength and conditioning Code(s): Z96.659 - PRESENCE OF UNSPECIFIED ARTIFICIAL KNEE JOINT (2) Total knee replacement status Current Visit: Yes Status: Acute Qualifiers: Laterality: right Code(s): Z96.659 - PRESENCE OF UNSPECIFIED ARTIFICIAL KNEE JOINT (3) Venous stasis of both lower extremities Current Visit: Yes Status: Chronic Code(s): I87.8 - OTHER SPECIFIED DISORDERS OF VEINS (4) Osteoarthritis Current Visit: Yes Status: Chronic Code(s): M19.90 - UNSPECIFIED OSTEOARTHRITIS, UNSPECIFIED SITE (5) Essential hypertension Current Visit: Yes Status: Chronic Code(s): I10 - ESSENTIAL (PRIMARY) HYPERTENSION (6) Obesity Current Visit: Yes Status: Chronic Code(s): E66.9 - OBESITY, UNSPECIFIED
[2018-03-14] MEDS: xanAX 0.5 MG PO SCH (21:35)
[2018-03-15] MEDS: NORVASC 5 MG PO SCH ×3 (09:50→22:02)
[2018-03-15] MEDS: Bystolic 5 MG PO SCH (09:50)
[2018-03-15] MEDS: Klor Con 10 MEQ PO SCH ×2 (09:51→21:31)
[2018-03-15] MEDS: ECOTRIN 81 MG PO SCH (09:51)
[2018-03-15] MEDS: Protonix 40MG Tablet PO SCH (09:53)
[2018-03-15] MEDS: hydroDIURIL 25 MG PO SCH (09:53)
[2018-03-15] MEDS: LASIX 20 MG PO SCH (09:53)
[2018-03-15] MEDS: MAG-OX 400 PO SCH ×2 (09:53→21:32)
[2018-03-15] MEDS: Lotensin 10 MG PO SCH (21:25)
[2018-03-15] MEDS: TYLENOL 325 MG PO PRN (21:30)
[2018-03-15] MEDS: xanAX 0.5 MG PO SCH (21:31)
[2018-03-16] MEDS: ECOTRIN 81 MG PO SCH (10:19)
[2018-03-16] MEDS: Bystolic 5 MG PO SCH (10:19)
[2018-03-16] MEDS: Protonix 40MG Tablet PO SCH (10:20)
[2018-03-16] MEDS: LASIX 20 MG PO SCH (10:21)
[2018-03-16] MEDS: Klor Con 10 MEQ PO SCH ×2 (10:21→21:13)
[2018-03-16] MEDS: MAG-OX 400 PO SCH ×2 (10:22→21:13)
[2018-03-16] MEDS: xanAX 0.5 MG PO SCH (21:13)
[2018-03-16] MEDS: Lotensin 10 MG PO SCH (21:13)
[2018-03-16] MEDS: NORVASC 5 MG PO SCH (21:13)
[2018-03-16] MEDS: TYLENOL 325 MG PO PRN (23:42)
[2018-03-17] MEDS: ECOTRIN 81 MG PO SCH (09:27)
[2018-03-17] MEDS: MAG-OX 400 PO SCH ×2 (09:27→22:12)
[2018-03-17] MEDS: Bystolic 5 MG PO SCH (09:27)
[2018-03-17] MEDS: hydroDIURIL 25 MG PO SCH (09:27)
[2018-03-17] MEDS: LASIX 20 MG PO SCH (09:27)
[2018-03-17] MEDS: Protonix 40MG Tablet PO SCH (09:27)
[2018-03-17] MEDS: Klor Con 10 MEQ PO SCH ×2 (09:27→22:13)
[2018-03-17] MEDS: Pain Relieving Rub TOP PRN (12:06)
[2018-03-17 13:44] LABS: 027 TOX PROD PRESUMPTIVE NEGATIVE (NEGATIVE); TOXIGENIC C. DIFF ORG NEGATIVE (NEGATIVE)
[2018-03-17] MEDS: TYLENOL 325 MG PO PRN (22:12)
[2018-03-17] MEDS: Lotensin 10 MG PO SCH (22:12)
[2018-03-17] MEDS: xanAX 0.5 MG PO SCH (22:12)
[2018-03-17] MEDS: NORVASC 5 MG PO SCH (22:12)
[2018-03-18] MEDS: LASIX 20 MG PO SCH (09:02)
[2018-03-18] MEDS: IMODIUM 2 MG PO PRN (09:02)
[2018-03-18] MEDS: Protonix 40MG Tablet PO SCH (09:02)
[2018-03-18] MEDS: Bystolic 5 MG PO SCH (09:02)
[2018-03-18] MEDS: hydroDIURIL 25 MG PO SCH (09:02)
[2018-03-18] MEDS: Klor Con 10 MEQ PO SCH ×2 (09:02→21:04)
[2018-03-18] MEDS: ECOTRIN 81 MG PO SCH (09:03)
[2018-03-18] MEDS: MAG-OX 400 PO SCH ×2 (09:03→21:04)
[2018-03-18] MEDS: Pain Relieving Rub TOP PRN (10:55)
[2018-03-18] MEDS: xanAX 0.5 MG PO SCH (21:03)
[2018-03-18] MEDS: Lotensin 10 MG PO SCH (21:04)
[2018-03-18] MEDS: NORVASC 5 MG PO SCH (21:04)
[2018-03-18] MEDS: TYLENOL 325 MG PO PRN (21:05)
[2018-03-19] MEDS: Protonix 40MG Tablet PO SCH (09:40)
[2018-03-19] MEDS: LASIX 20 MG PO SCH (09:40)
[2018-03-19] MEDS: ECOTRIN 81 MG PO SCH (09:40)
[2018-03-19] MEDS: Klor Con 10 MEQ PO SCH ×2 (09:40→21:07)
[2018-03-19] MEDS: MAG-OX 400 PO SCH ×2 (09:40→21:07)
[2018-03-19] MEDS: hydroDIURIL 25 MG PO SCH (09:40)
[2018-03-19] MEDS: Pain Relieving Rub TOP PRN (09:41)
[2018-03-19] MEDS: Bystolic 5 MG PO SCH (09:41)
[2018-03-19] MEDS: NORVASC 5 MG PO SCH (21:07)
[2018-03-19] MEDS: xanAX 0.5 MG PO SCH (21:07)
[2018-03-19] MEDS: Lotensin 10 MG PO SCH (21:07)
[2018-03-19] MEDS: TYLENOL 325 MG PO PRN (21:14)
[2018-03-20] MEDS: Protonix 40MG Tablet PO SCH (09:33)
[2018-03-20] MEDS: MAG-OX 400 PO SCH ×2 (09:33→22:26)
[2018-03-20] MEDS: hydroDIURIL 25 MG PO SCH (09:33)
[2018-03-20] MEDS: Klor Con 10 MEQ PO SCH ×2 (09:33→22:23)
[2018-03-20] MEDS: Bystolic 5 MG PO SCH (09:33)
[2018-03-20] MEDS: ECOTRIN 81 MG PO SCH (09:33)
[2018-03-20] MEDS: LASIX 20 MG PO SCH (09:33)
[2018-03-20] MEDS: Lotensin 10 MG PO SCH (22:25)
[2018-03-20] MEDS: NORVASC 5 MG PO SCH (22:26)
[2018-03-20] MEDS: xanAX 0.5 MG PO SCH (22:26)
[2018-03-21] MEDS: hydroDIURIL 25 MG PO SCH (09:42)
[2018-03-21] MEDS: Bystolic 5 MG PO SCH (09:42)
[2018-03-21] MEDS: Protonix 40MG Tablet PO SCH (09:43)
[2018-03-21] MEDS: MAG-OX 400 PO SCH ×2 (09:43→21:45)
[2018-03-21] MEDS: ECOTRIN 81 MG PO SCH (09:43)
[2018-03-21] MEDS: LASIX 20 MG PO SCH (09:43)
[2018-03-21] MEDS: Klor Con 10 MEQ PO SCH ×2 (09:43→21:45)
[2018-03-21] MEDS: Lotensin 10 MG PO SCH (21:45)
[2018-03-21] MEDS: TYLENOL 325 MG PO PRN (21:46)
[2018-03-21] MEDS: xanAX 0.5 MG PO SCH (21:46)
[2018-03-21] MEDS: NORVASC 5 MG PO SCH (21:46)
[2018-03-22] MEDS: Protonix 40MG Tablet PO SCH (09:19)
[2018-03-22] MEDS: Klor Con 10 MEQ PO SCH ×2 (09:19→22:25)
[2018-03-22] MEDS: MAG-OX 400 PO SCH ×2 (09:19→22:25)
[2018-03-22] MEDS: LASIX 20 MG PO SCH (09:19)
[2018-03-22] MEDS: hydroDIURIL 25 MG PO SCH (09:19)
[2018-03-22] MEDS: ECOTRIN 81 MG PO SCH (09:19)
[2018-03-22] MEDS: Bystolic 5 MG PO SCH (09:27)
[2018-03-22] MEDS: Lotensin 10 MG PO SCH (22:25)
[2018-03-22] MEDS: NORVASC 5 MG PO SCH (22:25)
[2018-03-22] MEDS: xanAX 0.5 MG PO SCH (22:25)
[2018-03-22] MEDS: TYLENOL 325 MG PO PRN (22:25)
[2018-03-23] MEDS: Bystolic 5 MG PO SCH (11:55)
[2018-03-23] MEDS: hydroDIURIL 25 MG PO SCH (11:56)
[2018-03-23] MEDS: ECOTRIN 81 MG PO SCH (11:56)
[2018-03-23] MEDS: LASIX 20 MG PO SCH (11:56)
[2018-03-23] MEDS: Klor Con 10 MEQ PO SCH ×2 (11:56→21:14)
[2018-03-23] MEDS: IMODIUM 2 MG PO PRN (11:57)
[2018-03-23] MEDS: Protonix 40MG Tablet PO SCH (11:57)
[2018-03-23] MEDS: MAG-OX 400 PO SCH ×2 (11:57→21:14)
[2018-03-23] MEDS: Lotensin 10 MG PO SCH (21:13)
[2018-03-23] MEDS: NORVASC 5 MG PO SCH (21:13)
[2018-03-23] MEDS: xanAX 0.5 MG PO SCH (21:14)
[2018-03-24] MEDS: Bystolic 5 MG PO SCH (10:22)
[2018-03-24] MEDS: MAG-OX 400 PO SCH ×2 (10:22→21:34)
[2018-03-24] MEDS: hydroDIURIL 25 MG PO SCH (10:23)
[2018-03-24] MEDS: Protonix 40MG Tablet PO SCH (10:23)
[2018-03-24] MEDS: LASIX 20 MG PO SCH (10:23)
[2018-03-24] MEDS: ECOTRIN 81 MG PO SCH (10:23)
[2018-03-24] MEDS: Klor Con 10 MEQ PO SCH ×2 (10:23→21:34)
[2018-03-24] MEDS: xanAX 0.5 MG PO SCH (21:34)
[2018-03-24] MEDS: NORVASC 5 MG PO SCH (21:34)
[2018-03-24] MEDS: TYLENOL 325 MG PO PRN (21:34)
[2018-03-24] MEDS: Lotensin 10 MG PO SCH ×2 (21:34→23:25)
[2018-03-25] MEDS: MAG-OX 400 PO SCH ×2 (09:26→21:39)
[2018-03-25] MEDS: Protonix 40MG Tablet PO SCH (09:26)
[2018-03-25] MEDS: ECOTRIN 81 MG PO SCH (09:27)
[2018-03-25] MEDS: LASIX 20 MG PO SCH (09:27)
[2018-03-25] MEDS: Bystolic 5 MG PO SCH (09:27)
[2018-03-25] MEDS: Klor Con 10 MEQ PO SCH ×2 (09:27→21:40)
[2018-03-25] MEDS: hydroDIURIL 25 MG PO SCH (09:27)
[2018-03-25] MEDS: Lotensin 10 MG PO SCH (21:39)
[2018-03-25] MEDS: NORVASC 5 MG PO SCH (21:40)
[2018-03-25] MEDS: xanAX 0.5 MG PO SCH (21:40)
[2018-03-26 05:52] LABS: ANION GAP 14.3 MEQ/L (5-15); BLOOD UREA NITROGEN 18 mg/dL (7-17); CHLORIDE 97 mmol/L (98-107); Calcium 9.3 mg/dL (8.4-10.2); Carbon Dioxide 29 mmol/L (22-30); Creatinine 1 0.78 mg/dL (0.52-1.04); Glucose 90 mg/dL (74-106); Potassium 3.6 mmol/L (3.5-5.1); SODIUM 136 mmol/L (137-145)
[2018-03-26] MEDS: MAG-OX 400 PO SCH ×2 (09:09→22:03)
[2018-03-26] MEDS: ECOTRIN 81 MG PO SCH (09:09)
[2018-03-26] MEDS: hydroDIURIL 25 MG PO SCH (09:09)
[2018-03-26] MEDS: Klor Con 10 MEQ PO SCH ×2 (09:09→22:02)
[2018-03-26] MEDS: Protonix 40MG Tablet PO SCH (09:09)
[2018-03-26] MEDS: LASIX 20 MG PO SCH (09:09)
[2018-03-26] MEDS: Bystolic 5 MG PO SCH (09:09)
[2018-03-26] MEDS: xanAX 0.5 MG PO SCH (22:03)
[2018-03-26] MEDS: Lotensin 10 MG PO SCH (22:03)
[2018-03-26] MEDS: NORVASC 5 MG PO SCH (22:03)
[2018-03-26] MEDS: TYLENOL 325 MG PO PRN (22:04)
[2018-03-27] MEDS: MAG-OX 400 PO SCH ×2 (09:38→21:01)
[2018-03-27] MEDS: LASIX 20 MG PO SCH (09:38)
[2018-03-27] MEDS: Bystolic 5 MG PO SCH (09:38)
[2018-03-27] MEDS: hydroDIURIL 25 MG PO SCH (09:38)
[2018-03-27] MEDS: Protonix 40MG Tablet PO SCH (09:38)
[2018-03-27] MEDS: ECOTRIN 81 MG PO SCH (09:38)
[2018-03-27] MEDS: Klor Con 10 MEQ PO SCH ×2 (09:39→21:01)
[2018-03-27] MEDS: Lotensin 10 MG PO SCH (21:01)
[2018-03-27] MEDS: NORVASC 5 MG PO SCH (21:01)
[2018-03-27] MEDS: TYLENOL 325 MG PO PRN (21:01)
[2018-03-27] MEDS: xanAX 0.5 MG PO SCH (21:02)
[2018-03-28] MEDS: Bystolic 5 MG PO SCH (09:35)
[2018-03-28] MEDS: Protonix 40MG Tablet PO SCH (09:35)
[2018-03-28] MEDS: Klor Con 10 MEQ PO SCH ×2 (09:35→21:53)
[2018-03-28] MEDS: hydroDIURIL 25 MG PO SCH (09:35)
[2018-03-28] MEDS: ECOTRIN 81 MG PO SCH (09:35)
[2018-03-28] MEDS: LASIX 20 MG PO SCH (09:35)
[2018-03-28] MEDS: MAG-OX 400 PO SCH ×2 (09:35→21:53)
[2018-03-28] MEDS: Lotensin 10 MG PO SCH (21:52)
[2018-03-28] MEDS: TYLENOL 325 MG PO PRN (21:53)
[2018-03-28] MEDS: NORVASC 5 MG PO SCH (21:53)
[2018-03-28] MEDS: xanAX 0.5 MG PO SCH (21:53)
[2018-03-29] MEDS: hydroDIURIL 25 MG PO SCH (10:09)
[2018-03-29] MEDS: Klor Con 10 MEQ PO SCH ×2 (10:09→21:24)
[2018-03-29] MEDS: LASIX 20 MG PO SCH (10:09)
[2018-03-29] MEDS: Protonix 40MG Tablet PO SCH (10:09)
[2018-03-29] MEDS: MAG-OX 400 PO SCH ×2 (10:09→21:25)
[2018-03-29] MEDS: ECOTRIN 81 MG PO SCH (10:10)
[2018-03-29] MEDS: Bystolic 5 MG PO SCH (10:12)
[2018-03-29] MEDS: xanAX 0.5 MG PO SCH (21:24)
[2018-03-29] MEDS: Lotensin 10 MG PO SCH (21:24)
[2018-03-29] MEDS: NORVASC 5 MG PO SCH (21:25)
[2018-03-29] MEDS: TYLENOL 325 MG PO PRN (21:25)
[2018-03-30] MEDS: ECOTRIN 81 MG PO SCH (08:49)
[2018-03-30] MEDS: MAG-OX 400 PO SCH ×2 (08:49→22:14)
[2018-03-30] MEDS: hydroDIURIL 25 MG PO SCH (08:49)
[2018-03-30] MEDS: Bystolic 5 MG PO SCH (08:49)
[2018-03-30] MEDS: LASIX 20 MG PO SCH (08:50)
[2018-03-30] MEDS: Klor Con 10 MEQ PO SCH ×2 (08:50→22:13)
[2018-03-30] MEDS: Protonix 40MG Tablet PO SCH (08:50)
[2018-03-30] MEDS: Lotensin 10 MG PO SCH (22:13)
[2018-03-30] MEDS: xanAX 0.5 MG PO SCH (22:14)
[2018-03-30] MEDS: NORVASC 5 MG PO SCH (22:14)
[2018-03-30] MEDS: TYLENOL 325 MG PO PRN (22:14)
[2018-03-31] MEDS: Protonix 40MG Tablet PO SCH (09:09)
[2018-03-31] MEDS: LASIX 20 MG PO SCH (09:09)
[2018-03-31] MEDS: hydroDIURIL 25 MG PO SCH (09:09)
[2018-03-31] MEDS: Klor Con 10 MEQ PO SCH ×2 (09:09→22:20)
[2018-03-31] MEDS: Bystolic 5 MG PO SCH (09:09)
[2018-03-31] MEDS: ECOTRIN 81 MG PO SCH (09:09)
[2018-03-31] MEDS: MAG-OX 400 PO SCH ×2 (09:10→22:21)
[2018-03-31] MEDS: Lotensin 10 MG PO SCH (22:21)
[2018-03-31] MEDS: xanAX 0.5 MG PO SCH (22:21)
[2018-03-31] MEDS: TYLENOL 325 MG PO PRN (22:21)
[2018-03-31] MEDS: NORVASC 5 MG PO SCH (22:21)
[2018-04-01] MEDS: hydroDIURIL 25 MG PO SCH (09:54)
[2018-04-01] MEDS: Bystolic 5 MG PO SCH (09:54)
[2018-04-01] MEDS: Klor Con 10 MEQ PO SCH ×2 (09:55→21:41)
[2018-04-01] MEDS: MAG-OX 400 PO SCH ×2 (09:55→21:43)
[2018-04-01] MEDS: Protonix 40MG Tablet PO SCH (09:55)
[2018-04-01] MEDS: ECOTRIN 81 MG PO SCH (09:55)
[2018-04-01] MEDS: IMODIUM 2 MG PO PRN (21:42)
[2018-04-01] MEDS: NORVASC 5 MG PO SCH (21:42)
[2018-04-01] MEDS: xanAX 0.5 MG PO SCH (21:42)
[2018-04-01] MEDS: Lotensin 10 MG PO SCH (21:42)
[2018-04-02] MEDS: Bystolic 5 MG PO SCH (09:38)
[2018-04-02] MEDS: Klor Con 10 MEQ PO SCH ×2 (09:39→22:18)
[2018-04-02] MEDS: ECOTRIN 81 MG PO SCH (09:39)
[2018-04-02] MEDS: hydroDIURIL 25 MG PO SCH (09:39)
[2018-04-02] MEDS: LASIX 20 MG PO SCH (09:39)
[2018-04-02] MEDS: Protonix 40MG Tablet PO SCH (09:40)
[2018-04-02] MEDS: MAG-OX 400 PO SCH ×2 (09:40→22:18)
[2018-04-02] MEDS: Lotensin 10 MG PO SCH (22:18)
[2018-04-02] MEDS: TYLENOL 325 MG PO PRN (22:18)
[2018-04-02] MEDS: xanAX 0.5 MG PO SCH (22:18)
[2018-04-02] MEDS: NORVASC 5 MG PO SCH (22:18)
[2018-04-03] MEDS: MAG-OX 400 PO SCH ×2 (09:31→21:18)
[2018-04-03] MEDS: ECOTRIN 81 MG PO SCH (09:31)
[2018-04-03] MEDS: Klor Con 10 MEQ PO SCH ×2 (09:31→21:18)
[2018-04-03] MEDS: hydroDIURIL 25 MG PO SCH (09:31)
[2018-04-03] MEDS: LASIX 20 MG PO SCH (09:31)
[2018-04-03] MEDS: Protonix 40MG Tablet PO SCH (09:31)
[2018-04-03] MEDS: Bystolic 5 MG PO SCH (09:31)
[2018-04-03] MEDS: xanAX 0.5 MG PO SCH (21:19)
[2018-04-03] MEDS: Lotensin 10 MG PO SCH (21:19)
[2018-04-03] MEDS: NORVASC 5 MG PO SCH (21:19)
[2018-04-04] MEDS: Klor Con 10 MEQ PO SCH ×2 (09:45→21:17)
[2018-04-04] MEDS: Bystolic 5 MG PO SCH (09:45)
[2018-04-04] MEDS: hydroDIURIL 25 MG PO SCH (09:45)
[2018-04-04] MEDS: ECOTRIN 81 MG PO SCH (09:45)
[2018-04-04] MEDS: Protonix 40MG Tablet PO SCH (09:46)
[2018-04-04] MEDS: MAG-OX 400 PO SCH ×2 (09:46→21:17)
[2018-04-04] MEDS: LASIX 20 MG PO SCH (09:46)
[2018-04-04] MEDS: Lotensin 10 MG PO SCH (21:15)
[2018-04-04] MEDS: NORVASC 5 MG PO SCH (21:16)
[2018-04-04] MEDS: xanAX 0.5 MG PO SCH (21:17)
[2018-04-05] MEDS: Bystolic 5 MG PO SCH (09:25)
[2018-04-05] MEDS: Protonix 40MG Tablet PO SCH (09:26)
[2018-04-05] MEDS: Klor Con 10 MEQ PO SCH ×2 (09:26→22:43)
[2018-04-05] MEDS: ECOTRIN 81 MG PO SCH (09:26)
[2018-04-05] MEDS: hydroDIURIL 25 MG PO SCH (09:27)
[2018-04-05] MEDS: MAG-OX 400 PO SCH ×2 (09:28→22:42)
[2018-04-05] MEDS: LASIX 20 MG PO SCH (09:28)
[2018-04-05] MEDS: Lotensin 10 MG PO SCH (22:42)
[2018-04-05] MEDS: NORVASC 5 MG PO SCH (22:43)
[2018-04-05] MEDS: xanAX 0.5 MG PO SCH (22:44)
[2018-04-06] MEDS: LASIX 20 MG PO SCH (09:44)
[2018-04-06] MEDS: Bystolic 5 MG PO SCH (09:44)
[2018-04-06] MEDS: MAG-OX 400 PO SCH ×2 (09:44→21:58)
[2018-04-06] MEDS: Klor Con 10 MEQ PO SCH ×2 (09:44→21:58)
[2018-04-06] MEDS: ECOTRIN 81 MG PO SCH (09:44)
[2018-04-06] MEDS: Protonix 40MG Tablet PO SCH (09:44)
[2018-04-06] MEDS: hydroDIURIL 25 MG PO SCH (09:44)
[2018-04-06] MEDS: xanAX 0.5 MG PO SCH (21:58)
[2018-04-06] MEDS: NORVASC 5 MG PO SCH (21:59)
[2018-04-06] MEDS: Lotensin 10 MG PO SCH (22:00)
[2018-04-07] MEDS: hydroDIURIL 25 MG PO SCH (09:58)
[2018-04-07] MEDS: Bystolic 5 MG PO SCH (09:58)
[2018-04-07] MEDS: ECOTRIN 81 MG PO SCH (09:58)
[2018-04-07] MEDS: Klor Con 10 MEQ PO SCH ×2 (09:58→21:31)
[2018-04-07] MEDS: MAG-OX 400 PO SCH ×2 (09:59→21:30)
[2018-04-07] MEDS: Protonix 40MG Tablet PO SCH (09:59)
[2018-04-07] MEDS: LASIX 20 MG PO SCH (09:59)
[2018-04-07] MEDS: Lotensin 10 MG PO SCH (21:30)
[2018-04-07] MEDS: xanAX 0.5 MG PO SCH (21:31)
[2018-04-07] MEDS: NORVASC 5 MG PO SCH (21:31)
[2018-04-08] MEDS: Bystolic 5 MG PO SCH (09:42)
[2018-04-08] MEDS: MAG-OX 400 PO SCH ×2 (09:43→22:23)
[2018-04-08] MEDS: hydroDIURIL 25 MG PO SCH (09:43)
[2018-04-08] MEDS: Protonix 40MG Tablet PO SCH (09:43)
[2018-04-08] MEDS: ECOTRIN 81 MG PO SCH (09:43)
[2018-04-08] MEDS: Klor Con 10 MEQ PO SCH ×2 (09:43→22:23)
[2018-04-08] MEDS: LASIX 20 MG PO SCH (09:46)
[2018-04-08] MEDS: Lotensin 10 MG PO SCH (22:22)
[2018-04-08] MEDS: NORVASC 5 MG PO SCH (22:22)
[2018-04-08] MEDS: xanAX 0.5 MG PO SCH (22:23)
[2018-04-08] MEDS: TYLENOL 325 MG PO PRN (22:23)
[2018-04-09] MEDS: Bystolic 5 MG PO SCH (09:52)
[2018-04-09] MEDS: LASIX 20 MG PO SCH (09:53)
[2018-04-09] MEDS: hydroDIURIL 25 MG PO SCH (09:53)
[2018-04-09] MEDS: ECOTRIN 81 MG PO SCH (09:53)
[2018-04-09] MEDS: MAG-OX 400 PO SCH ×2 (09:53→21:39)
[2018-04-09] MEDS: Klor Con 10 MEQ PO SCH ×2 (09:53→21:39)
[2018-04-09] MEDS: Protonix 40MG Tablet PO SCH (09:54)
[2018-04-09] MEDS: Lotensin 10 MG PO SCH (21:38)
[2018-04-09] MEDS: NORVASC 5 MG PO SCH (21:38)
[2018-04-09] MEDS: TYLENOL 325 MG PO PRN (21:39)
[2018-04-09] MEDS: xanAX 0.5 MG PO SCH (21:39)
[2018-04-10] MEDS: Bystolic 5 MG PO SCH (10:18)
[2018-04-10] MEDS: Klor Con 10 MEQ PO SCH ×2 (10:19→21:47)
[2018-04-10] MEDS: hydroDIURIL 25 MG PO SCH (10:19)
[2018-04-10] MEDS: ECOTRIN 81 MG PO SCH (10:19)
[2018-04-10] MEDS: MAG-OX 400 PO SCH ×2 (10:19→21:47)
[2018-04-10] MEDS: LASIX 20 MG PO SCH (10:19)
[2018-04-10] MEDS: Protonix 40MG Tablet PO SCH (10:20)
[2018-04-10] MEDS: Lotensin 10 MG PO SCH (21:46)
[2018-04-10] MEDS: NORVASC 5 MG PO SCH (21:47)
[2018-04-10] MEDS: xanAX 0.5 MG PO SCH (21:47)
[2018-04-11] MEDS: Bystolic 5 MG PO SCH (07:58)
[2018-04-11] MEDS: ECOTRIN 81 MG PO SCH (07:59)
[2018-04-11] MEDS: Klor Con 10 MEQ PO SCH ×2 (07:59→21:32)
[2018-04-11] MEDS: MAG-OX 400 PO SCH ×2 (07:59→21:32)
[2018-04-11] MEDS: LASIX 20 MG PO SCH (07:59)
[2018-04-11] MEDS: hydroDIURIL 25 MG PO SCH (07:59)
[2018-04-11] MEDS: Protonix 40MG Tablet PO SCH (07:59)
[2018-04-11] MEDS ORDERED: Aplisol ID ONE (17:20)
[2018-04-11] MEDS: xanAX 0.5 MG PO SCH (21:32)
[2018-04-11] MEDS: Lotensin 10 MG PO SCH (21:32)
[2018-04-11] MEDS: NORVASC 5 MG PO SCH (21:33)
[2018-04-12] MEDS ORDERED: NORVASC 5 MG PO SCH (08:07)
--- NOTE | 2018-04-12 08:09 | PCM.NOTE ---
Date and Time: 04/12/18804 Subjective Assessment: she is doing well but has had slow progress with the ambulation due to the restrictions from surgery for mobility with the immobilizer in place. she has been more tired and was light headed yesterday and bp is running much lower then she typically runs at home. Objective Exam General Appearance: no apparent distress, alert Neurologic Exam: alert, oriented x 3, cooperative, normal mood/affect, nml cerebellar function, sensation nml, No motor deficits Skin Exam: normal color, warm, dry Eye Exam: PERRL, EOMI, eyes nml inspection Ears, Nose, Throat Exam: normal ENT inspection, pharynx normal, moist mucous membranes Neck Exam: normal inspection, non-tender, supple, full range of motion Respiratory Exam: normal breath sounds, lungs clear, No respiratory distress Cardiovascular Exam: regular rate/rhythm, normal heart sounds Gastrointestinal/Abdomen Exam: soft, No tenderness, No mass Extremity Exam: normal inspection, other (right knee in immobilizer) Back Exam: normal inspection, normal range of motion, No CVA tenderness, No vertebral tenderness Pelvic Exam: deferred Rectal Exam: deferred OBJECTIVE DATA Vital Signs: Vital Signs - 24 hr Temp Pulse Resp BP Pulse Ox 04/11/18 20:18 98.1 F 66 18 102/52 96 Pain Assessment - Last Documented Pain Intensity 0 Pain Scale Used [facility] Intake and Output: Intake & Output 04/09/18 04/10/18 04/11/18 04/12/18 11:59 11:59 11:59 11:59 Intake Total 3691 913 4488 220 Balance 2523 372 1750 220 Weight 89.8 kg Assessment/Plan (1) History of revision of total knee arthroplasty Current Visit: Yes Status: Acute Assessment & Plan: continues to follow with PT and ortho for the restictions with plans to increase mobility in the immobilizer to 90 degrees of flexion soon and then hopefully she can ambulate well enough to go on her own Code(s): Z96.659 - PRESENCE OF UNSPECIFIED ARTIFICIAL KNEE JOINT (2) Total knee replacement status Current Visit: Yes Status: Acute Qualifiers: Laterality: right Code(s): Z96.659 - PRESENCE OF UNSPECIFIED ARTIFICIAL KNEE JOINT (3) Venous stasis of both lower extremities Current Visit: Yes Status: Chronic Code(s): I87.8 - OTHER SPECIFIED DISORDERS OF VEINS (4) Osteoarthritis Current Visit: Yes Status: Chronic Code(s): M19.90 - UNSPECIFIED OSTEOARTHRITIS, UNSPECIFIED SITE (5) Essential hypertension Current Visit: Yes Status: Chronic Assessment & Plan: will decrease to amlodipine 5mg daily from 10 mg daily continue to monitor Code(s): I10 - ESSENTIAL (PRIMARY) HYPERTENSION (6) Obesity Current Visit: Yes Status: Chronic Code(s): E66.9 - OBESITY, UNSPECIFIED
[2018-04-12] MEDS: hydroDIURIL 25 MG PO SCH (09:51)
[2018-04-12] MEDS: Protonix 40MG Tablet PO SCH (09:51)
[2018-04-12] MEDS: ECOTRIN 81 MG PO SCH (09:51)
[2018-04-12] MEDS: Bystolic 5 MG PO SCH (09:51)
[2018-04-12] MEDS: MAG-OX 400 PO SCH ×2 (09:51→21:22)
[2018-04-12] MEDS: LASIX 20 MG PO SCH (09:51)
[2018-04-12] MEDS: Klor Con 10 MEQ PO SCH ×2 (09:51→21:22)
[2018-04-12] MEDS: xanAX 0.5 MG PO SCH (21:21)
[2018-04-12] MEDS: Lotensin 10 MG PO SCH (21:27)
[2018-04-13] MEDS: Lotensin 10 MG PO SCH (22:08)
[2018-04-14] MEDS: Klor Con 10 MEQ PO SCH ×5 (09:44→21:54)
[2018-04-14] MEDS: ECOTRIN 81 MG PO SCH (09:45)
[2018-04-14] MEDS: Protonix 40MG Tablet PO SCH (09:45)
[2018-04-14] MEDS: Bystolic 5 MG PO SCH (09:45)
[2018-04-14] MEDS: MAG-OX 400 PO SCH ×5 (09:45→21:54)
[2018-04-14] MEDS: hydroDIURIL 25 MG PO SCH (09:46)
[2018-04-14] MEDS: LASIX 20 MG PO SCH (09:48)
[2018-04-14] MEDS: xanAX 0.5 MG PO SCH ×3 (14:54→21:55)
[2018-04-14] MEDS: Lotensin 10 MG PO SCH (21:48)
[2018-04-15] MEDS: Bystolic 5 MG PO SCH ×2 (10:21→15:52)
[2018-04-15] MEDS: ECOTRIN 81 MG PO SCH ×2 (10:21→15:53)
[2018-04-15] MEDS: Klor Con 10 MEQ PO SCH ×3 (10:22→22:53)
[2018-04-15] MEDS: MAG-OX 400 PO SCH ×3 (10:22→22:53)
[2018-04-15] MEDS: hydroDIURIL 25 MG PO SCH ×2 (10:22→15:53)
[2018-04-15] MEDS: LASIX 20 MG PO SCH ×2 (10:22→15:53)
[2018-04-15] MEDS: Protonix 40MG Tablet PO SCH ×2 (10:23→15:55)
[2018-04-15] MEDS: Lotensin 10 MG PO SCH (22:53)
[2018-04-15] MEDS: xanAX 0.5 MG PO SCH (22:53)
[2018-04-16] MEDS: MAG-OX 400 PO SCH ×2 (10:58→21:41)
[2018-04-16] MEDS: hydroDIURIL 25 MG PO SCH (10:58)
[2018-04-16] MEDS: ECOTRIN 81 MG PO SCH (10:58)
[2018-04-16] MEDS: Bystolic 5 MG PO SCH (10:58)
[2018-04-16] MEDS: LASIX 20 MG PO SCH (10:58)
[2018-04-16] MEDS: Protonix 40MG Tablet PO SCH (10:58)
[2018-04-16] MEDS: Klor Con 10 MEQ PO SCH ×2 (10:58→21:41)
[2018-04-16] MEDS: xanAX 0.5 MG PO SCH (21:41)
[2018-04-16] MEDS: Lotensin 10 MG PO SCH (21:41)
[2018-04-17] MEDS: Klor Con 10 MEQ PO SCH ×2 (08:52→21:36)
[2018-04-17] MEDS: ECOTRIN 81 MG PO SCH (08:52)
[2018-04-17] MEDS: Protonix 40MG Tablet PO SCH (08:52)
[2018-04-17] MEDS: MAG-OX 400 PO SCH ×2 (08:52→21:36)
[2018-04-17] MEDS: hydroDIURIL 25 MG PO SCH (08:52)
[2018-04-17] MEDS: LASIX 20 MG PO SCH (08:52)
[2018-04-17] MEDS: Bystolic 5 MG PO SCH (08:52)
[2018-04-17] MEDS: Lotensin 10 MG PO SCH (21:36)
[2018-04-17] MEDS: xanAX 0.5 MG PO SCH (21:36)
[2018-04-18] MEDS: LASIX 20 MG PO SCH (09:00)
[2018-04-18] MEDS: Bystolic 5 MG PO SCH (09:00)
[2018-04-18] MEDS: MAG-OX 400 PO SCH ×2 (09:00→21:15)
[2018-04-18] MEDS: Protonix 40MG Tablet PO SCH (09:00)
[2018-04-18] MEDS: Klor Con 10 MEQ PO SCH ×2 (09:00→21:15)
[2018-04-18] MEDS: ECOTRIN 81 MG PO SCH (09:00)
[2018-04-18] MEDS: hydroDIURIL 25 MG PO SCH (09:00)
[2018-04-18] MEDS: xanAX 0.5 MG PO SCH (21:15)
[2018-04-18] MEDS: Lotensin 10 MG PO SCH (21:15)
[2018-04-19] MEDS: Bystolic 5 MG PO SCH (10:45)
[2018-04-19] MEDS: Protonix 40MG Tablet PO SCH (10:45)
[2018-04-19] MEDS: ECOTRIN 81 MG PO SCH (10:45)
[2018-04-19] MEDS: Klor Con 10 MEQ PO SCH ×2 (10:45→21:19)
[2018-04-19] MEDS: MAG-OX 400 PO SCH ×2 (10:45→21:19)
[2018-04-19] MEDS: LASIX 20 MG PO SCH (10:46)
[2018-04-19] MEDS: hydroDIURIL 25 MG PO SCH (10:46)
[2018-04-19] MEDS: Lotensin 10 MG PO SCH (21:19)
[2018-04-19] MEDS: xanAX 0.5 MG PO SCH (21:19)
[2018-04-20] MEDS: Klor Con 10 MEQ PO SCH ×2 (09:12→21:22)
[2018-04-20] MEDS: Bystolic 5 MG PO SCH (09:12)
[2018-04-20] MEDS: ECOTRIN 81 MG PO SCH (09:13)
[2018-04-20] MEDS: LASIX 20 MG PO SCH (09:13)
[2018-04-20] MEDS: Protonix 40MG Tablet PO SCH (09:13)
[2018-04-20] MEDS: hydroDIURIL 25 MG PO SCH (09:13)
[2018-04-20] MEDS: MAG-OX 400 PO SCH ×2 (09:13→21:22)
[2018-04-20] MEDS: xanAX 0.5 MG PO SCH (21:22)
[2018-04-20] MEDS: Lotensin 10 MG PO SCH (21:22)
[2018-04-21 07:26] VITALS: BP 147/65; PULSE 57; O2SAT 94
--- NOTE | 2018-04-21 08:22 | PCM.DCORD ---
- Discharge Discharge Date: 04/21/18 Disposition: Home, Self-Care Condition: Stable Prescriptions: Continue Furosemide 20 mg [Lasix 20 mg] 20 mg PO DAILY Potassium Chloride [Klor-Con 10] 10 meq PO BID Amlodipine Besylate/Benazepril [Lotrel 10-40 mg Capsule] 1 each PO DAILY Nebivolol HCl [Bystolic] 20 mg PO DAILY Magnesium Oxide [Magnesium] 400 mg PO BID Chlorthalidone 25 mg PO DAILY Alprazolam [Xanax] 0.5 mg PO HS Aspirin 81 mg PO DAILY Acetaminophen 325 mg PO Q6H PRN PRN Reason: Pain Discontinued Hydrocodone Bit/Acetaminophen [Hydrocodon-Acetaminophn 10-325] 1 tab PO Q4HPRN PRN PRN Reason: Moderate Pain Instructions: Osteoarthritis (DC), Total Knee Replacement (DC) Additional Instructions: KEEP SCHEDULED FOLLOWUP APPT WITH YOUR SURGEON ON 04/28/18 Follow up with: WILBERTO CARRASQUILLO [Primary Care Provider] - 04/28/18 11:15 am Forms: Discharge Instructions
--- NOTE | 2018-04-21 08:28 | PCM.DS ---
Discharge Summary Date of Admission: 03/13/18 12:49 Date of Discharge: 04/21/18 Admitting Physician: WILBERTO CARRASQUILLO Primary Care Provider: WILBERTO CARRASQUILLO Allergies Allergies Sulfa (Sulfonamide Antibiotics) [Sulfa(Sulfonamide Antibiotics)] Allergy ( Intermediate, Verified 11/29/17 16:10) pt thinks she has had sulfa since her a reaction (unsure of what kind of reaction) years ago and did fine. 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 This resulted in a revision preformed by Dr. Walls at [facility]. She lives alone and is to wear a knee immobilizer for 2 weeks followed by a different knee immobilizer for 6 additional weeks she had prolonged difficulty with becoming stable on her feet well enough to care for herself at home. She made great progress with PT daily but with the limitations on activity from ortho her progress was delayed. She did have these reduced and she tolerated well with her new activity level adequately with therapy that they felt comfortable with discharge to home with continued outpatient f/u. She did require some adjustment to bp meds in the hospital but it began to trend back up and she had been stable on outpatient regimen for a few years now so will return to outpatient bp regimen on discharge. - Vitals & Intake/Output Vital Signs: Vital Signs Temperature 98.1 F 04/21/18 07:25 Pulse Rate 57 L 04/21/18 07:25 Respiratory Rate 18 04/21/18 07:25 Blood Pressure 147/65 04/21/18 07:25 O2 Sat by Pulse Oximetry 94 L 04/21/18 07:25 Intake & Output: Intake & Output 04/18/18 04/19/18 04/20/18 04/21/18 11:59 11:59 11:59 11:59 Intake Total 860 1080 240 480 Balance 860 1080 240 480 - Lab Result Diagrams: 03/26/18 05:36 - Procedures and Test Procedures and Tests throughout Hospitalization: Therapy Orders & Screens 03/13/18 10:00 OT Eval and Treat ( Order) ROUTINE Comment: Consulting Provider: WILBERTO CARRASQUILLO Physician Instructions: Reason For Exam: Evaluate: Yes Treat: Yes Reason for Evaluation: DECONDITIONING R/T RIGHT PATELLA TENDON REPAIR Diagnosis: DECONDITIONING R/T RIGHT PATELLA TENDON REPAIR PT Eval & Treat (MD Order) ROUTINE Reason for Eval:: DECONDITIONING R/T RIGHT PATELLA TENDON REPAIR Diagnosis: DECONDITIONING R/T RIGHT PATELLA TENDON REPAIR 03/13/18 13:40 OT Screen per Nursing Assess Comment: Protocol Order Physician Instructions: Greater than 3 points order OT Admission Screening Reason For Exam: Triggered on Admission Diagnosis: deconditioning R/T R knee surgery. Open Wound/Cellutlitis/Pressure Ulcers: Yes Acute Fx/ORIF/Change in wt bearing status: Yes Severe MUSCULOSKELETAL pain: No ADL Dysfunction: Yes Acute CVA w/Hemiparesis/Hemiplegia: No Decreased Functional Mobility/Strength: No Sprain/Strain: No Acute Post-op Mobility Dysfunction: No Total Points: 13 PT Screen per Nursing Assess ONCE Comment: Protocol Order Physician Instructions: Greater than 3 points order PT Admission Screenin Reason For Exam: Triggered on Admission Diagnosis: deconditioning R/T R knee surgery. Open Wound/Cellutlitis/Pressure Ulcers: Yes Acute Fx/ORIF/Change in wt bearing status: Yes Severe MUSCULOSKELETAL pain: No ADL Dysfunction: Yes Acute CVA w/Hemiparesis/Hemiplegia: No Decreased Functional Mobility/Strength: No Sprain/Strain: No Acute Post-op Mobility Dysfunction: No Total Points: 13 Discharge Exam General Appearance: no apparent distress, alert, obese Neurologic Exam: alert, oriented x 3, cooperative, normal mood/affect, nml cerebellar function, sensation nml, No motor deficits Skin Exam: normal color, warm, dry Eye Exam: PERRL, EOMI, eyes nml inspection Ears, Nose, Throat Exam: normal ENT inspection, pharynx normal, moist mucous membranes Neck Exam: normal inspection, non-tender, supple, full range of motion Respiratory Exam: normal breath sounds, lungs clear, No respiratory distress Cardiovascular Exam: regular rate/rhythm, normal heart sounds Gastrointestinal/Abdomen Exam: soft, No tenderness, No mass Extremity Exam: normal inspection, other (restricted rom right knee well healed incision mild to moderate effusion with some warmth in the knee but no redness mild tenderness throughout) Back Exam: normal inspection, normal range of motion, No CVA tenderness, No vertebral tenderness Pelvic Exam: deferred Rectal Exam: deferred Final Diagnosis/Problem List - Final Discharge Diagnosis/Problem (1) History of revision of total knee arthroplasty Status: Acute (2) Total knee replacement status Status: Acute (3) Venous stasis of both lower extremities Status: Chronic (4) Osteoarthritis Status: Chronic (5) Essential hypertension Status: Chronic (6) Obesity Status: Chronic - Discharge Discharge Date: 04/21/18 Disposition: Home, Self-Care Condition: Stable Prescriptions: Continue Furosemide 20 mg [Lasix 20 mg] 20 mg PO DAILY Potassium Chloride [Klor-Con 10] 10 meq PO BID Amlodipine Besylate/Benazepril [Lotrel 10-40 mg Capsule] 1 each PO DAILY Nebivolol HCl [Bystolic] 20 mg PO DAILY Magnesium Oxide [Magnesium] 400 mg PO BID Chlorthalidone 25 mg PO DAILY Alprazolam [Xanax] 0.5 mg PO HS Aspirin 81 mg PO DAILY Acetaminophen 325 mg PO Q6H PRN PRN Reason: Pain Discontinued Hydrocodone Bit/Acetaminophen [Hydrocodon-Acetaminophn 10-325] 1 tab PO Q4HPRN PRN PRN Reason: Moderate Pain Instructions: Osteoarthritis (DC), Total Knee Replacement (DC) Additional Instructions: KEEP SCHEDULED FOLLOWUP APPT WITH YOUR SURGEON ON 04/28/18 Follow up with: WILBERTO CARRASQUILLO [Primary Care Provider] - 04/29/18 2:30 pm Forms: Discharge Instructions
[2018-04-21] MEDS: ECOTRIN 81 MG PO SCH (10:22)
[2018-04-21] MEDS: Bystolic 5 MG PO SCH (10:22)
[2018-04-21] MEDS: hydroDIURIL 25 MG PO SCH (10:23)
[2018-04-21] MEDS: MAG-OX 400 PO SCH (10:23)
[2018-04-21] MEDS: Klor Con 10 MEQ PO SCH (10:23)
[2018-04-21] MEDS: LASIX 20 MG PO SCH (10:23)
[2018-04-21] MEDS: Protonix 40MG Tablet PO SCH (10:23)
== END 2018-04-21 12:10 | disposition home or self-care (01) | DRG 566 ==
LOC: MED SURG 12:49
PROVIDERS: ADMIT Family Medicine; ATTEND Family Medicine
DX: Z96.651 Presence of right artificial knee joint (principal); I87.8 Other specified disorders of veins; M19.90 Unspecified osteoarthritis, unspecified site; I10 Essential (primary) hypertension; E66.9 Obesity, unspecified; Z79.899 Other long term (current) drug therapy
CPT/HCPCS: 36415; 80048; 87493; 90662; A6457; G0008; 97110-GP; A9270-GY

== ENCOUNTER 2019-12-25 09:22 | Emergency (ER) | payer MEDICARE, OTHER ==
--- NOTE | 2019-12-25 09:59 | ERPHSYRPT ---
- History of Present Illness Time Seen by Provider: 12/25/19 09:53 Source: patient Exam Limitations: no limitations Patient Subjective Stated Complaint: pt here for sob off and on for last couple days, worse when laying down, no cough or fever, Triage Nursing Assessment: pt arrived per wc, alert, resp easy, skin w/d/p. chest clear , abd soft, has swelling to left foot for a couple days Physician History: 84 yo WF w PND x2wks. Pt denies chest pain/cough/fever/N/V/D/melena/hematochezia/abdominal pain/increased edema. H/o CHF denied. Timing/Duration: other (2wks) Severity of Dyspnea-Max: moderate Severity of Dyspnea-Current: none Possible Cause: no prior episodes Modifying Factors: Improves With: nothing, other Associated Symptoms: intermittent, No anxiety, No cough, No chest pain/discomfort, No edema, No fever, No insomnia, No loss of appetite, No lightheadedness, No wheezing, No weakness, No ankle swelling, No chills, No hemoptysis, No calf pain, No dizziness, No heaviness, No heart racing, No lightheadedness, No leg swelling, No muscle spasms feet, No muscle spasms hands, No painful breathing, No productive cough, No sweating, No tightness, No tinglin g face Allergies/Adverse Reactions: Sulfa (Sulfonamide Antibiotics) [Sulfa(Sulfonamide Antibiotics)] Allergy (Intermediate, Verified 12/25/19 09:30) pt thinks she has had sulfa since her a reaction (unsure of what kind of reaction) years ago and did fine. Home Medications: Furosemide 20 mg [Lasix 20 mg] 20 mg PO DAILY 09/30/11 [History] Potassium Chloride [Klor-Con 10] 10 meq PO BID 09/30/11 [History] Amlodipine Besylate/Benazepril [Lotrel 10-40 mg Capsule] 1 each PO DAILY 09/15/16 [History] Chlorthalidone 25 mg PO DAILY 08/08/17 [History] Nebivolol HCl [Bystolic] 20 mg PO DAILY 08/08/17 [History] Alprazolam [Xanax] 0.5 mg PO HS 11/29/17 [History] Acetaminophen 325 mg PO Q6H PRN 03/13/18 [History] Naproxen Sodium [Aleve] 1 ea DAILY 12/25/19 [History] Hx Tetanus, Diphtheria Vaccination/Date Given: Yes Hx Influenza Vaccination/Date Given: Yes Hx Pneumococcal Vaccination/Date Given: Yes Immunizations Up to Date: Yes Travel Risk - International Travel Have you traveled outside of the country in past 3 weeks: No - Coronavirus Screening Symptoms: Shortness of Breath Close contact with a COVID-19 positive Pt in past 14-21 Days: No - Review of Systems Constitutional: No Symptoms, Night Sweats Ears, Nose, & Throat: No Symptoms Respiratory: No Symptoms Cardiac: No Symptoms, PND Abdominal/Gastrointestinal: No Symptoms Genitourinary Symptoms: No Symptoms Musculoskeletal: No Symptoms Skin: No Symptoms Neurological: No Symptoms Psychological: No Symptoms Endocrine: No Symptoms Hematologic/Lymphatic: No Symptoms Immunological/Allergic: No Symptoms - Past Medical History Pertinent Past Medical History: Yes Neurological History: No Pertinent History ENT History: No Pertinent History Cardiac History: Hypertension Respiratory History: No Pertinent History Endocrine Medical History: No Pertinent History Musculoskeletal History: Arthritis, Degenerative Disk Disease, Osteoarthritis GI Medical History: No Pertinent History History: Other Psycho-Social History: No Pertinent History Female Reproductive Disorders: No Pertinent History Other Medical History: CATARACTS. BACK SURGERY - Past Surgical History Past Surgical History: Yes Neuro Surgical History: No Pertinent History Cardiac: No Pertinent History Respiratory: No Pertinent History Gastrointestinal: No Pertinent History Genitourinary: No Pertinent History Musculoskeletal: No Pertinent History Female Surgical History: Tubal Ligation Other Surgical History: back surgery -L-5 herniat. disc. Arthroscopy of the R knee, Right total knee done 11/26/17 R knee patella. 03/2018 - Social History Smoking Status: Never smoker Exposure to second hand smoke: No Alcohol Use: None Drug Use: none Patient Lives Alone: Yes Significant Family History: hypertension - Female History Hx Last Menstrual Period: post Hx Now: No - Nursing Vital Signs Nursing Vital Signs: Initial Vital Signs Temperature 97.4 F 12/25/19 09:23 Pulse Rate 69 12/25/19 09:23 Respiratory Rate 18 12/25/19 09:23 Blood Pressure 152/85 12/25/19 09:23 O2 Sat by Pulse Oximetry 98 12/25/19 09:23 Pain Scale Pain Intensity 0 - Physical Exam General Appearance: no apparent distress Eye Exam: PERRL/EOMI, eyes nml inspection Ears, Nose, Throat Exam: hearing grossly normal, normal ENT inspection, normal pharynx Neck Exam: normal inspection, non-tender, supple, full range of motion, No Bru dzinski, No Kernig's, No meningismus, No JVD Respiratory Exam: normal breath sounds, lungs clear, airway intact, No respiratory distress Cardiovascular/Chest Exam: normal heart sounds, regular rate/rhythm, normal peripheral pulses, No murmur Abdominal/Gastrointestinal Exam: soft, normal bowel sounds, No tenderness, No distention, No mass (Morbid obesity) Extremity Exam: non-tender, pedal edema (1-2+) Neurologic Exam: alert, oriented x 3, 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, 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 as tested, normal mood/affect, sensation nml, No motor deficits, No sensory deficit Skin Exam: normal color, warm, dry Lymphatic Exam: No adenopathy SpO2 Interpretation: normal SpO2: 99 O2 Delivery: Room Air - Course Nursing assessment & vital signs reviewed: Yes EKG Interpreted by Me: RATE (NSR/R62/PVC's/poor R wave progression/Normal QT- QTc) - Radiology Exams Chest X-ray Interpretation: Interpreted by me (No pneumonia or CHF) Ordered Tests: Active Orders 24 hr Category Date Time Status EKG-ER Only STAT Care 12/25/19 09:53 Completed CHEST 1 VIEW (PORTABLE) Stat Exams 12/25/19 10:42 Taken CBC W DIFF Stat Lab 12/25/19 09:30 Completed CMP Stat Lab 12/25/19 09:30 Completed NT PRO BNP Stat Lab 12/25/19 09:30 Completed PROTIME WITH INR Stat Lab 12/25/19 09:30 Completed PTT Stat Lab 12/25/19 09:30 Completed TROPONIN Q3H Lab 12/25/19 09:30 Completed Lab/Rad Data: Laboratory Result Diagrams 12/25/19 09:30 12/25/19 09:30 Laboratory Results 12/25/19 12/25/19 12/25/19 Range/Units 09:30 09:30 09:30 WBC (4.0-10.5) K/mm3 RBC (4.1-5.4) M/mm3 Hgb (12.0-16.0) gm/dl Hct (35-47) % MCV (78-100) fl MCH (26-32) pg MCHC (32-36) g/dl RDW (11.5-14.0) % Plt Count (150-450) K/mm3 MPV (7.5-11.0) fl Gran % (36.0-66.0) % Eos # (Auto) (0-0.5) Absolute Lymphs (auto) (1.0-4.6) Absolute Monos (auto) (0.0-1.3) Lymphocytes % (24.0-44.0) % Monocytes % (0.0-12.0) % Eosinophils % (0.00-5.0) % Basophils % (0.0-0.4) % Absolute Granulocytes (1.4-6.9) Basophils # (0-0.4) PT 11.5 (9.95-12.35) SECONDS INR 1.02 (0.8-3.0) APTT 28.5 (25.3-37.0) SECONDS Sodium 138 (137-145) mmol/L Potassium 4.5 (3.5-5.1) mmol/L Chloride 99 (98-107) mmol/L Carbon Dioxide 27 (22-30) mmol/L Anion Gap 16.6 H (5-15) MEQ/L BUN 34 H (7-17) mg/dL Creatinine 1.35 H (0.52-1.04) mg/dL Estimated GFR 39.6 ML/MIN Glucose 135 H (74-106) mg/dL Calcium 10.4 H (8.4-10.2) mg/dL Total Bilirubin 0.80 (0.2-1.3) mg/dL AST 20 (14-36) U/L ALT 15 (0-35) U/L Alkaline Phosphatase 114 (38-126) U/L Troponin I < 0.012 (0.000-0.034) ng/mL NT-Pro-B Natriuret Pep 138 (0-1800) pg/mL Serum Total Protein 7.8 (6.3-8.2) g/dL Albumin 4.3 (3.5-5.0) g/dL 12/25/19 Range/Units 09:30 WBC 7.8 (4.0-10.5) K/mm3 RBC 4.25 (4.1-5.4) M/mm3 Hgb 14.1 (12.0-16.0) gm/dl Hct 42.9 (35-47) % MCV 100.9 H (78-100) fl MCH 33.2 H (26-32) pg MCHC 32.9 (32-36) g/dl RDW 13.0 (11.5-14.0) % Plt Count 253 (150-450) K/mm3 MPV 9.7 (7.5-11.0) fl Gran % 78.4 H (36.0-66.0) % Eos # (Auto) 0.13 (0-0.5) Absolute Lymphs (auto) 1.01 (1.0-4.6) Absolute Monos (auto) 0.54 (0.0-1.3) Lymphocytes % 12.9 L (24.0-44.0) % Monocytes % 6.9 (0.0-12.0) % Eosinophils % 1.7 (0.00-5.0) % Basophils % 0.1 (0.0-0.4) % Absolute Granulocytes 6.15 (1.4-6.9) Basophils # 0.01 (0-0.4) PT (9.95-12.35) SECONDS INR (0.8-3.0) APTT (25.3-37.0) SECONDS Sodium (137-145) mmol/L Potassium (3.5-5.1) mmol/L Chloride (98-107) mmol/L Carbon Dioxide (22-30) mmol/L Anion Gap (5-15) MEQ/L BUN (7-17) mg/dL Creatinine (0.52-1.04) mg/dL Estimated GFR ML/MIN Glucose (74-106) mg/dL Calcium (8.4-10.2) mg/dL Total Bilirubin (0.2-1.3) mg/dL AST (14-36) U/L ALT (0-35) U/L Alkaline Phosphatase (38-126) U/L Troponin I (0.000-0.034) ng/mL NT-Pro-B Natriuret Pep (0-1800) pg/mL Serum Total Protein (6.3-8.2) g/dL Albumin (3.5-5.0) g/dL - Progress Progress: unchanged Air Movement: good Progress Note: 12/25/19 10:49 Pt wo evidence of pneumonia/CHF/MD at this time. Will have her increase lasix to 40mg daily and to f/u w PCP in AM. Counseled pt/family regarding: lab results, need for follow-up, rad results - Departure Departure Disposition: Home Clinical Impression: Paroxysmal nocturnal dyspnea Condition: Stable Critical Care Time: No Referrals: TERRI MITCHELL NP [Primary Care Provider] - Instructions: Shortness of Breath (Dyspnea) (DC) Additional Instructions: Increase lasix to 40mg daily. Follow up with family MD in AM. Return to ER for increasing shortness of breath/Chest pain/temperature greater than 100.5.
[2019-12-25 10:00] LABS: Absolute Neutrophil Ct (ANC) 6.15 (1.4-6.9); BASOPHIL % 0.1 % (0.0-0.4); Basophil (Absolute #) 0.01 (0-0.4); Eosinophil % 1.7 % (0.00-5.0); Eosinophil (Absolute #) 0.13 (0-0.5); Hematocrit 42.9 % (35-47); Hemoglobin 14.1 gm/dl (12.0-16.0); Lymphocyte (Absolute #) 1.01 (1.0-4.6); Lymphocytes % 12.9 % (24.0-44.0); Mean Cell Volume 100.9 fl (78-100); Mean Corpuscular Hemoglobin 33.2 pg (26-32); Mean Corpuscular Hgb Concent. 32.9 g/dl (32-36); Mean Platelet Volume 9.7 fl (7.5-11.0); Monocyte (Absolute #) 0.54 (0.0-1.3); Monocytes % 6.9 % (0.0-12.0); Neutrophil % 78.4 % (36.0-66.0); Platelet Count 253 K/mm3 (150-450); Red Blood Count 4.25 M/mm3 (4.1-5.4); White Blood Count 7.8 K/mm3 (4.0-10.5)
[2019-12-25 10:01] LABS: INR 1.02 (0.8-3.0); PROTIME 11.5 SECONDS (9.95-12.35)
[2019-12-25 10:03] LABS: PTT 28.5 SECONDS (25.3-37.0)
[2019-12-25 10:14] LABS: ALBUMIN 4.3 g/dL (3.5-5.0); ANION GAP 16.6 MEQ/L (5-15); BILIRUBIN,TOTAL 0.8 mg/dL (0.2-1.3); Calcium 10.4 mg/dL (8.4-10.2); Creatinine 1 1.35 mg/dL (0.52-1.04); Potassium 4.5 mmol/L (3.5-5.1); Total Protein 7.8 g/dL (6.3-8.2)
[2019-12-25 11:12] VITALS: BP 136/72; PULSE 67
[2019-12-25 13:56] VITALS: O2SAT 99
--- NOTE | 2019-12-25 20:52 | XRAY ---
Indication: Short of breath. Comparison: March 07, 2015. Portable chest remains clear again with mild right hemidiaphragm elevation. Heart is not enlarged for AP portable technique. New small hiatal hernia. Bony thorax intact again with osteopenia and degenerative changes. Impression: Nonacute chest with chronic features.
== END 2019-12-25 11:14 | disposition home or self-care (01) ==
LOC: ED 09:22
DX: R06.00 Dyspnea, unspecified (principal); I10 Essential (primary) hypertension; M19.90 Unspecified osteoarthritis, unspecified site; R06.02 Shortness of breath
CPT/HCPCS: 36415; 71045; 80053; 83880; 84484; 85025; 85610; 85730; 93005; 99284

== ENCOUNTER 2022-06-25 10:38 | Day surgery (SDC) | payer MEDICARE, OTHER ==
[2022-06-25] MEDS ORDERED: BUPIVACAINE 0.5% VIAL IJ ONE (10:39)
[2022-06-25] MEDS ORDERED: Depo-Medrol 40 MG/ML IM ONE (10:39)
[2022-06-25] MEDS ORDERED: Lactated Ringers 1,000 ML IV ONE (13:29)
--- NOTE | 2022-06-25 13:58 | XRAY ---
Indication: Left shoulder and subacromial bursa injection. Intraoperative fluoroscopy provided for 23 seconds. 3 digital spot images submitted for interpretation demonstrates needle tip projecting over the left glenohumeral joint superiorly. Second needle tip subacromial. Small amount of contrast injected for both needle tip placement. Correlate with intraoperative findings/report.
--- NOTE | 2022-06-25 13:58 | XRAY ---
Indication: Right shoulder and subacromial bursa injection. Intraoperative fluoroscopy provided for 16 seconds. 4 digital spot images submitted for interpretation demonstrates needle tip projecting over the right glenohumeral joint superiorly. Second needle tip subacromial. Small amount of contrast injected for both needle tip placement. Correlate with intraoperative findings/report.
--- NOTE | 2022-06-25 16:35 | XRAY ---
16 seconds of fluoroscopy was used in surgery for a right intra-articular and subacromial bursa injection.
--- NOTE | 2022-06-25 16:35 | XRAY ---
23 seconds of fluoroscopy was used in surgery for a left intra-articular and subacromial bursa injection.
== END 2022-06-25 13:10 | disposition home or self-care (01) ==
LOC: SDC-PAIN 10:38
PROVIDERS: ATTEND Psychiatry & Neurology Pain Medicine
DX: M19.012 Primary osteoarthritis, left shoulder (principal); M19.011 Primary osteoarthritis, right shoulder; M75.52 Bursitis of left shoulder; M75.51 Bursitis of right shoulder; Z79.899 Other long term (current) drug therapy
CPT/HCPCS: 20610; 73030; 77002; J1030; Q9966

== ENCOUNTER 2022-09-23 16:17 | Emergency (ER) | payer MEDICARE, OTHER ==
--- NOTE | 2022-09-23 16:42 | ERPHSYRPT ---
- History of Present Illness Historian: patient, EMS Exam Limitations: no limitations Patient Subjective Stated Complaint: Pt states "I had pain last night in my chest and I put a heating pad on and the pain went away and today I was just sitting there and the pain came back and I could not get rid of it." Triage Nursing Assessment: Pt presented alert and oriented X 3, skin pwd. pt ambulates with an upright steady gait, able to speak in clear full sentences pt stated bilateral shoulder pain and chest pain. Physician History: 87 yo WF w L sternal chest pain [id number]. Pain radiates to her L neck and inferiorly. She had similar pain last night. Pain is sharp and nothing makes it better or worse. It is now 5/10 on scale but was up to a 10. EMS gave 324 ASA/MSO4 4mg IV/4mg IV Zofran w improvement in pain. Pt denies N/V/Dyspnea/diaphoresis. She has HTN but denies DM/hyperlipidemia/tobacco use/[place]-CAD. Timing/Duration: other (3hours) Activities at Onset: rest Quality: sharpness Location: substernal Chest Pain Radiation: neck Severity of Pain-Max: severe Severity of Pain-Current: moderate Modifying Factors: Improves With: nothing, morphine Associated Symptoms: denies symptoms Aspirin Treatment Today: 325 mg x 1 Allergies/Adverse Reactions: Sulfa (Sulfonamide Antibiotics) [Sulfa(Sulfonamide Antibiotics)] Allergy (Intermediate, Verified 12/25/19 09:30) pt thinks she has had sulfa since her a reaction (unsure of what kind of reaction) years ago and did fine. Home Medications: Furosemide 20 mg [Lasix 20 mg] 20 mg PO DAILY 09/30/11 [History] Potassium Chloride [Klor-Con 10] 10 meq PO BID 09/30/11 [History] Amlodipine Besylate/Benazepril [Lotrel 10-40 mg Capsule] 1 each PO DAILY 09/15/16 [History] Nebivolol HCl [Bystolic] 20 mg PO DAILY 08/08/17 [History] Acetaminophen 325 mg PO Q6H PRN 03/13/18 [History] Tramadol HCl 50 mg [Ultram 50 mg] 50 mg PO HS 09/23/22 [History] Hx Tetanus, Diphtheria Vaccination/Date Given: Yes Hx Influenza Vaccination/Date Given: Yes Hx Pneumococcal Vaccination/Date Given: Yes Immunizations Up to Date: Yes Travel Risk - International Travel Have you traveled outside of the country in past 3 weeks: No - Coronavirus Screening Are you exhibiting any of the following symptoms?: No Close contact with a COVID-19 positive Pt in past 14-21 Days: No - Vaccine Status Have you recieved a Covid-19 vaccination: Yes 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 - Vaccination Dates Date of 2cond Vaccination (if applicable): 2020 - Review of Systems Constitutional: No Symptoms Eyes: No Symptoms Ears, Nose, & Throat: No Symptoms Respiratory: No Symptoms Cardiac: Chest Pain Abdominal/Gastrointestinal: No Symptoms Genitourinary Symptoms: No Symptoms Musculoskeletal: No Symptoms Skin: No Symptoms Neurological: No Symptoms Psychological: No Symptoms Endocrine: No Symptoms Hematologic/Lymphatic: No Symptoms Immunological/Allergic: No Symptoms - Past Medical History Pertinent Past Medical History: Yes Neurological History: No Pertinent History ENT History: No Pertinent History Cardiac History: Hypertension Respiratory History: No Pertinent History Endocrine Medical History: No Pertinent History Musculoskeletal History: Arthritis, Degenerative Disk Disease, Osteoarthritis GI Medical History: No Pertinent History History: Other Psycho-Social History: No Pertinent History Female Reproductive Disorders: No Pertinent History Other Medical History: CATARACTS. BACK SURGERY - Past Surgical History Past Surgical History: Yes Neuro Surgical History: No Pertinent History Cardiac: No Pertinent History Respiratory: No Pertinent History Gastrointestinal: No Pertinent History Genitourinary: No Pertinent History Musculoskeletal: No Pertinent History Female Surgical History: Tubal Ligation Other Surgical History: back surgery -L-5 herniat. disc. Arthroscopy of the R knee, Right total knee done 11/26/17 R knee patella. 03/2018 - Social History Smoking Status: Never smoker Exposure to second hand smoke: No Alcohol Use: None Drug Use: none Patient Lives Alone: Yes Significant Family History: hypertension - Nursing Vital Signs Nursing Vital Signs: Initial Vital Signs Temperature 97.9 F 09/23/22 16:17 Pulse Rate 79 09/23/22 16:17 Respiratory Rate 20 09/23/22 16:17 Blood Pressure 170/85 09/23/22 16:17 O2 Sat by Pulse Oximetry 98 09/23/22 16:17 Pain Scale Pain Intensity 2 Hypertensive - Physical Exam General Appearance: no apparent distress Eye Exam: PERRL/EOMI, eyes nml inspection Ears, Nose, Throat Exam: normal ENT inspection, TMs normal, pharynx normal, moist mucous membranes Neck Exam: normal inspection, non-tender, supple, full range of motion, No meningismus, No mass, No Brudzinski, No Kernig's, No carotid bruit Respiratory Exam: normal breath sounds, lungs clear, airway intact, No chest tenderness, No respiratory distress Cardiovascular Exam: regular rate/rhythm, murmur (2/6 ERIK), capillary refill <2 sec Gastrointestinal/Abdomen Exam: soft, normal bowel sounds Back Exam: normal inspection, normal range of motion, No CVA tenderness, No vertebral tenderness Extremity Exam: normal inspection, normal range of motion Neurologic Exam: alert, oriented x 3, cooperative, 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, normal mood/affect, nml cerebellar function, nml station & gait, sensation nml Skin Exam: normal color, warm, dry Lymphatic Exam: No adenopathy SpO2 Interpretation: normal SpO2: 98 O2 Delivery: Room Air - Course EKG Interpreted by Me: RATE (NSR/Rate 75/Mildly prolonged QTc/Possible old inferior [place]/flat T waves/No acute ST segment changes) - Radiology Exams Chest X-ray Interpretation: Discussed w/ radiologist (Portable CXR nothing acute per Rad/Hiatal hernia) Ordered Tests: Active Orders 24 hr Category Date Time Status EKG-ER Only STAT Care 09/23/22 16:27 Active CHEST 1 VIEW (PORTABLE) Stat Exams 09/23/22 16:28 Taken CBC W DIFF Stat Lab 09/23/22 16:40 Completed CMP Stat Lab 09/23/22 16:40 Completed NT PRO BNPII Stat Lab 09/23/22 16:40 Completed PROTIME WITH INR Stat Lab 09/23/22 16:40 Completed PTT Stat Lab 09/23/22 16:40 Completed TROPONIN Q4H Lab 09/23/22 16:40 Completed TROPONIN Q4H Lab 09/23/22 18:08 Completed TROPONIN Q4H Lab 09/24/22 00:30 Ordered Medication Summary Discontinued Medications Generic Name Dose Route Start Last Admin Trade Name Freq PRN Reason Stop Dose Admin Enoxaparin Sodium 90 mg 09/23/22 19:16 09/23/22 19:20 Enoxaparin Sodium 80 Mg/0.8 Ml Syringe SQ 09/23/22 19:17 Not Given STAT ONE Enoxaparin Sodium 80 mg 09/23/22 19:19 09/23/22 19:20 Enoxaparin Sodium 80 Mg/0.8 Ml Syringe SQ 09/23/22 19:20 80 mg STAT ONE Administration Enoxaparin Sodium Confirm 09/23/22 19:19 Enoxaparin Sodium 80 Mg/0.8 Ml Syringe Administered 09/23/22 19:20 Dose 80 mg SQ .STK-MED ONE Nitroglycerin 0.4 mg 09/23/22 19:11 09/23/22 19:14 Nitroglycerin 0.4 Mg (Ed) 0.4 Mg Tab.Subl SL 09/23/22 19:12 0.4 mg STAT ONE Administration Lab/Rad Data: Laboratory Result Diagrams 09/23/22 16:40 09/23/22 16:40 Laboratory Results 09/23/22 09/23/22 09/23/22 Range/Units 18:08 16:40 16:40 WBC (4.0-10.5) x10^3/uL RBC (4.1-5.4) x10^6/uL Hgb (12.0-16.0) g/dL Hct (35-47) % MCV (78-100) fL MCH (26-32) pg MCHC (32-36) g/dL RDW (11.5-14.0) % Plt Count (150-450) x10^3/uL MPV (7.5-11.0) fL Gran % (36.0-66.0) % Immature Gran % (Auto) (0.00-0.4) % Nucleat RBC Rel Count (0.00-0.1) % Eos # (Auto) (0-0.5) x10^3/uL Immature Gran # (Auto) (0.00-0.03) x10^3u/L Absolute Lymphs (auto) (1.0-4.6) x10^3/uL Absolute Monos (auto) (0.0-1.3) x10^3/uL Absolute Nucleated RBC (0.00-0.01) x10^3u/L Lymphocytes % (24.0-44.0) % Monocytes % (0.0-12.0) % Eosinophils % (0.00-5.0) % Basophils % (0.0-0.4) % Absolute Granulocytes (1.4-6.9) x10^3/uL Basophils # (0-0.4) x10^3/uL PT (9.4-12.5) SECONDS INR (0.8-3.0) APTT (25.1-36.5) SECONDS Sodium (137-145) mmol/L Potassium (3.5-5.1) mmol/L Chloride (98-107) mmol/L Carbon Dioxide (22-30) mmol/L Anion Gap (5-15) MEQ/L BUN (7-17) mg/dL Creatinine (0.52-1.04) mg/dL Estimated GFR ML/MIN Glucose (74-106) mg/dL Calcium (8.4-10.2) mg/dL Total Bilirubin (0.2-1.3) mg/dL AST (14-36) U/L ALT (0-35) U/L Alkaline Phosphatase (38-126) U/L Troponin I 0.069 H* (0.000-0.034) ng/mL NT-Pro-B Natriuret Pep 257 (<300) pg/mL Serum Total Protein (6.3-8.2) g/dL Albumin (3.5-5.0) g/dL Influenza Type A Ag NEGATIVE (NEGATIVE) Influenza Type B Ag NEGATIVE (NEGATIVE) RSV (PCR) NEGATIVE (NEGATIVE) SARS-CoV-2 (PCR) NEGATIVE (NEGATIVE) 09/23/22 09/23/22 09/23/22 Range/Units 16:40 16:40 16:40 WBC (4.0-10.5) x10^3/uL RBC (4.1-5.4) x10^6/uL Hgb (12.0-16.0) g/dL Hct (35-47) % MCV (78-100) fL MCH (26-32) pg MCHC (32-36) g/dL RDW (11.5-14.0) % Plt Count (150-450) x10^3/uL MPV (7.5-11.0) fL Gran % (36.0-66.0) % Immature Gran % (Auto) (0.00-0.4) % Nucleat RBC Rel Count (0.00-0.1) % Eos # (Auto) (0-0.5) x10^3/uL Immature Gran # (Auto) (0.00-0.03) x10^3u/L Absolute Lymphs (auto) (1.0-4.6) x10^3/uL Absolute Monos (auto) (0.0-1.3) x10^3/uL Absolute Nucleated RBC (0.00-0.01) x10^3u/L Lymphocytes % (24.0-44.0) % Monocytes % (0.0-12.0) % Eosinophils % (0.00-5.0) % Basophils % (0.0-0.4) % Absolute Granulocytes (1.4-6.9) x10^3/uL Basophils # (0-0.4) x10^3/uL PT 10.6 (9.4-12.5) SECONDS INR 0.97 (0.8-3.0) APTT 25.1 (25.1-36.5) SECONDS Sodium 138 (137-145) mmol/L Potassium 3.9 (3.5-5.1) mmol/L Chloride 102 (98-107) mmol/L Carbon Dioxide 22 (22-30) mmol/L Anion Gap 17.8 H (5-15) MEQ/L BUN 22 H (7-17) mg/dL Creatinine 1.00 (0.52-1.04) mg/dL Estimated GFR 55.6 ML/MIN Glucose 210 H (74-106) mg/dL Calcium 9.7 (8.4-10.2) mg/dL Total Bilirubin 0.60 (0.2-1.3) mg/dL AST 23 (14-36) U/L ALT 18 (0-35) U/L Alkaline Phosphatase 110 (38-126) U/L Troponin I 0.053 H* (0.000-0.034) ng/mL NT-Pro-B Natriuret Pep (<300) pg/mL Serum Total Protein 7.4 (6.3-8.2) g/dL Albumin 4.3 (3.5-5.0) g/dL Influenza Type A Ag (NEGATIVE) Influenza Type B Ag (NEGATIVE) RSV (PCR) (NEGATIVE) SARS-CoV-2 (PCR) (NEGATIVE) 09/23/22 Range/Units 16:40 WBC 8.2 (4.0-10.5) x10^3/uL RBC 3.91 L (4.1-5.4) x10^6/uL Hgb 12.7 (12.0-16.0) g/dL Hct 38.6 (35-47) % MCV 98.7 (78-100) fL MCH 32.5 H (26-32) pg MCHC 32.9 (32-36) g/dL RDW 12.4 (11.5-14.0) % Plt Count 284 (150-450) x10^3/uL MPV 9.4 (7.5-11.0) fL Gran % 73.5 H (36.0-66.0) % Immature Gran % (Auto) 0.2 (0.00-0.4) % Nucleat RBC Rel Count 0.0 (0.00-0.1) % Eos # (Auto) 0.16 (0-0.5) x10^3/uL Immature Gran # (Auto) 0.02 (0.00-0.03) x10^3u/L Absolute Lymphs (auto) 1.34 (1.0-4.6) x10^3/uL Absolute Monos (auto) 0.56 (0.0-1.3) x10^3/uL Absolute Nucleated RBC 0.00 (0.00-0.01) x10^3u/L Lymphocytes % 16.4 L (24.0-44.0) % Monocytes % 6.9 (0.0-12.0) % Eosinophils % 2.0 (0.00-5.0) % Basophils % 1.0 (0.0-0.4) % Absolute Granulocytes 5.99 (1.4-6.9) x10^3/uL Basophils # 0.08 (0-0.4) x10^3/uL PT (9.4-12.5) SECONDS INR (0.8-3.0) APTT (25.1-36.5) SECONDS Sodium (137-145) mmol/L Potassium (3.5-5.1) mmol/L Chloride (98-107) mmol/L Carbon Dioxide (22-30) mmol/L Anion Gap (5-15) MEQ/L BUN (7-17) mg/dL Creatinine (0.52-1.04) mg/dL Estimated GFR ML/MIN Glucose (74-106) mg/dL Calcium (8.4-10.2) mg/dL Total Bilirubin (0.2-1.3) mg/dL AST (14-36) U/L ALT (0-35) U/L Alkaline Phosphatase (38-126) U/L Troponin I (0.000-0.034) ng/mL NT-Pro-B Natriuret Pep (<300) pg/mL Serum Total Protein (6.3-8.2) g/dL Albumin (3.5-5.0) g/dL Influenza Type A Ag (NEGATIVE) Influenza Type B Ag (NEGATIVE) RSV (PCR) (NEGATIVE) SARS-CoV-2 (PCR) (NEGATIVE) - Progress Progress Note: 09/23/22 19:[address] Niño at [facility] note and vital signs reviewed No food or housing insecurities noted Lab results reviewed and shared w pt CXR result reviewed and shared w pt Pt requested transfer to [place] so that she can be closer to children SL NTG x1 w improvement in BP and pain 80mg sq Lovenox 09/23/22 19:16 09/23/22 19:46 Counseled pt/family regarding: lab results, diagnosis, rad results - Departure Departure Disposition: Transfer Clinical Impression: NSTEMI (non-ST elevated myocardial infarction) Condition: Stable Critical Care Time: Yes Critical Care Time(excluding separately billable procedures): Critical 30-74 mins Referrals: TERRI MITCHELL NP [Primary Care Provider] - Follow up/PCP as directed
[2022-09-23 16:57] LABS: Absolute Neutrophil Ct (ANC) 5.99 x10^3/uL (1.4-6.9); Basophil (Absolute #) 0.08 x10^3/uL (0-0.4); Eosinophil (Absolute #) 0.16 x10^3/uL (0-0.5); Hematocrit 38.6 % (35-47); Hemoglobin 12.7 g/dL (12.0-16.0); IMMATURE GRAN # 0.02 x10^3u/L (0.00-0.03); IMMATURE GRAN % 0.2 % (0.00-0.4); Lymphocyte (Absolute #) 1.34 x10^3/uL (1.0-4.6); Lymphocytes % 16.4 % (24.0-44.0); Mean Cell Volume 98.7 fL (78-100); Mean Corpuscular Hemoglobin 32.5 pg (26-32); Mean Corpuscular Hgb Concent. 32.9 g/dL (32-36); Mean Platelet Volume 9.4 fL (7.5-11.0); Monocyte (Absolute #) 0.56 x10^3/uL (0.0-1.3); Monocytes % 6.9 % (0.0-12.0); Neutrophil % 73.5 % (36.0-66.0); Platelet Count 284 x10^3/uL (150-450); Red Blood Count 3.91 x10^6/uL (4.1-5.4); Red Cell Distribution Width 12.4 % (11.5-14.0); White Blood Count 8.2 x10^3/uL (4.0-10.5)
[2022-09-23 17:09] LABS: ALBUMIN 4.3 g/dL (3.5-5.0); ANION GAP 17.8 MEQ/L (5-15); BILIRUBIN,TOTAL 0.6 mg/dL (0.2-1.3); Calcium 9.7 mg/dL (8.4-10.2); EST GLOMERULAR FILTRATION RATE 55.6 ML/MIN; INR 0.97 (0.8-3.0); PROTIME 10.6 SECONDS (9.4-12.5); PTT 25.1 SECONDS (25.1-36.5); Potassium 3.9 mmol/L (3.5-5.1); Total Protein 7.4 g/dL (6.3-8.2)
[2022-09-23 17:26] LABS: INFLUENZA A NEGATIVE (NEGATIVE); INFLUENZA B NEGATIVE (NEGATIVE); RESPIRATORY SYNCTIAL VIRUS NEGATIVE (NEGATIVE); SARS-CoV-2 Xpert Express NEGATIVE (NEGATIVE)
[2022-09-23] MEDS ORDERED: Nitrostat 0.4 MG (ED) SL ONE (19:11)
[2022-09-23] MEDS ORDERED: ENOXAPARIN SODIUM SQ ONE ×3 (19:16→19:19)
[2022-09-23 19:28] VITALS: BP 138/73; PULSE 80
[2022-09-23 19:47] VITALS: O2SAT 98
--- NOTE | 2022-09-25 08:20 | XRAY ---
Indication: Chest pain. Comparison: December 25, 2019 Portable chest demonstrates enlarging moderate-sized hiatal hernia occupying left lung base. Remaining heart and lungs unremarkable. Bony thorax intact again with osteopenia and moderate degenerative changes. No new/acute findings.
== END 2022-09-23 19:45 | disposition short-term general hospital (02) ==
LOC: ED 16:17
DX: I21.4 Non-ST elevation (NSTEMI) myocardial infarction (principal); R07.9 Chest pain, unspecified; I10 Essential (primary) hypertension; Z79.891 Long term (current) use of opiate analgesic; Z79.899 Other long term (current) drug therapy
CPT/HCPCS: 0241U; 36000; 36415; 71045; 80053; 83880; 84484; 85025; 85610; 85730; 93005; 96372; 99284; 99291; J1650; A9270-GY